=== PATIENT | male | born 1945 | race Caucasian/White ===

== ENCOUNTER 2019-07-05 15:00 | Outpatient (CLI) | payer MEDICARE, SELFPAY ==
--- NOTE | ~2019-07-05 | XR_ITS ---
EXAMINATION: XR chest 2V EXAM DATE: 07/05/2019 15:17 INDICATION: Polyarthralgia. TECHNIQUE: Frontal and lateral projections of the chest obtained and reviewed. Comparison is made to prior examination from 02/24/2019. FINDINGS: The lungs are clear. There are no pleural effusions. The cardiomediastinal silhouette is within normal limits. There is no pneumothorax suspected. The bones and soft tissues are unremarkab le. IMPRESSION: No acute cardiopulmonary findings. Reviewed, dictated and finalized at location B.
== END 2019-07-05 15:01 | disposition home or self-care (01) ==
LOC: ANHIMG 15:04
PROVIDERS: PCP Family Medicine; Visit Provider Physician Assistant
DX: M19.90 Unspecified osteoarthritis, unspecified site (principal)
CPT/HCPCS: 71046

== ENCOUNTER 2019-07-13 15:12 | Outpatient (CLI) | payer MEDICARE, SELFPAY ==
--- NOTE | ~2019-07-13 | XR_ITS ---
EXAMINATION: XR chest 2V DATE: 07/13/2019 15:32 INDICATION: Fever, unspecified cough TECHNIQUE: PA and lateral views of the chest are obtained. COMPARISON: 07/05/2019 FINDINGS: The lungs are free of acute opacities. There is no pleural effusion or pneumothorax. The ca rdiomediastinal silhouette is normal. The visualized bones and soft tissues are unremarkable. IMPRESSION: 1. No acute cardiopulmonary abnormality. Reviewed, dictated and finalized at location A.
== END 2019-07-13 15:13 | disposition home or self-care (01) ==
PROVIDERS: PCP Family Medicine; Visit Provider Physician Assistant
DX: R50.9 Fever, unspecified (principal)
CPT/HCPCS: 71046

== ENCOUNTER 2019-08-14 16:47 | Emergency (ER) | payer MEDICARE, SELFPAY ==
--- NOTE | ~2019-08-14 | XR_ITS ---
EXAMINATION: XR chest 1V portable INDICATION: History of hypertension TECHNIQUE: Portable AP chest at 1742 hours COMPARISON: 07/13/2019 FINDINGS: The lungs are free of acute opacities. There is no pleural effusion or pneumothorax. The ca rdiomediastinal silhouette is normal. The visualized bones and soft tissues are unremarkable. IMPRESSION: 1. No acute cardiopulmonary abnormality. Reviewed, dictated and finalized at location A.
[2019-08-14 16:52] VITALS: BP 146/78; PULSE 83; RESP 18; TEMP 36.5; O2SAT 96
[2019-08-14 16:57] VITALS: BP 150/76; PULSE 80; RESP 18; TEMP 37.1; O2SAT 96
--- NOTE | 2019-08-14 16:57 | ED.GENADULT ---
HPI - General Adult General Chief complaint: Extremity Injury, Upper Stated complaint: left hand pain, swelling, discoloration x4 days Time Seen by Provider: 08/14/19 16:53 History of Present Illness HPI narrative: Patient is a 73 y/o male complaining of left 3rd-5th finger pain starting about 4 days ago. He states that initially the pain was burning and itching. Now his pain is more like aching and he rates it as 7/10. He states that hanging his fingers down improves his pain. He also noticed dark discoloration of his finger. He has history of Atrial fib, but he is currently not on anticoagulation. He has a slight cough and congestion which he attributed to allergies. Related Data Home Medications Medication Instructions Recorded Confirmed Tumeric 500 mg PO DAILY 02/24/19 02/24/19 amlodipine 5 mg PO DAILY 02/24/19 02/24/19 cyanocobalamin (vitamin B-12) 1,000 mcg PO DAILY 02/24/19 02/24/19 dutasteride 5 mg PO DAILY 02/24/19 02/24/19 folic acid 400 mg PO DAILY 02/24/19 02/24/19 sotalol 80 mg PO BID 02/24/19 02/24/19 prednisone 10 mg tablet 10 mg PO DAILY 06/19/19 prednisone PO 08/14/19 Allergies Allergy/AdvReac Type Severity Reaction Status Date / Time iodine Allergy Unknown Anaphylaxis Verified 06/19/19 13:45 shrimp Allergy Unknown Itching Verified 06/19/19 13:45 Review of Systems Constitutional: Constitutional: Denies chills, Denies fever(s), Denies headache(s) and Denies weakness Eyes: Eyes: Denies blurry vision ENT: Denies headache(s) and Denies neck pain Cardiovascular: Cardiovascular: Denies chest pain and Denies dyspnea Respiratory: Respiratory: Reports cough and Denies dyspnea Gastrointestinal: Gastrointestinal: Denies abdominal pain, Denies diarrhea, Denies nausea and Denies vomiting Genitourinary: Genitourinary: Denies hematuria and Denies dysuria Musculoskeletal: Musculoskeletal: Denies back pain and Denies neck pain Comments: left finger pain Neurologic: Denies headache(s) and Denies weakness PMFSH Past Medical History Medical History A-fib CVA (cerebral vascular accident) Enlarged prostate Fever History of CVA (cerebrovascular accident) HTN (hypertension) MDS (myelodysplastic syndrome) SOB (shortness of breath) Surgical History Surgical History History of cardiac radiofrequency ablation Family History Family History Father Family history of coronary artery disease Family history of cardiovascular disease Mother Hypertension A-fib Sibling Diabetes 1.5, managed as type 2 Kidney failure Sibling Hypertension Other Family history of arthritis Social History Social History Social History: The patient lives with his in [place]. He is a patient of Dr. Pa Nelson. He designates his as his surrogate decision maker and he wishes to be a full code. He drinks a glass of wine each evening. 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 Smoking packs per day: 2 Smoking cigarettes per day: 40.0 Years smoked: 40 Smoking pack-years: 80.00 Smoking status: Former smoker Tobacco type: cigarettes Second hand tobacco smoke exposure: Yes Smoking end date: 02/24/99 Alcohol intake: current Drinks per week: 7 Substance use: never Substance use type: does not use Gender identity (if verbalized by the patient): Male Spiritual care concerns: No Agree to blood products: Yes Exam Const: General: no acute distress and well developed Orientation/consciousness: oriented to person, oriented to place, oriented to time and patient oriented x3 HENMT: Head: normocephalic Ears: external ears normal General nose exam: Normal external nose present Eyes: General: appearance normal, both eyes and all related structures Conjunctivae: conjunct
--- NOTE | 2019-08-14 17:05 | ECG_ITS ---
Measurements Intervals [place] Rate: 74 P: 72 IN: 151 QRS: 68 QRSD: 102 T: 45 QT: 395 QTc: 438 Interpretive Statements SINUS RHYTHM POSSIBLE LEFT ATRIAL ENLARGEMENT INCOMPLETE RIGHT BUNDLE BRANCH BLOCK BORDERLINE ECG Electronically Signed On 08-14-2019 18:12:06 CDT by Gallo Steiner D.O.
[2019-08-14 17:19] LABS: Hematocrit 59.5 % (42.0-52.0); Hemoglobin 17.1 g/dL (14.0-18.0); Mean Corpuscular HGB Conc 28.7 g/dl (32-36); Mean Corpuscular Hemoglobin 20.3 pg (26-34); Mean Corpuscular Volume 70.5 fl (80-100); Platelet Count Result 170 k/mm3 (150-375); Red Blood Count 8.44 M/mm3 (4.6-6.20); White Blood Count 31.6 K/mm3 (4.5-10.0)
[2019-08-14 17:27] LABS: INR 1.3; Partial Thromboplastin Time 38.3 SECONDS (22.3-36.8); Prothrombin Time 15.4 Seconds (11.1-14.7)
[2019-08-14 17:30] LABS: Total Cells Counted 100
[2019-08-14 17:31] LABS: Band Neutrophils Percent 1 % (0-6); Lymphocytes Absolute Manual 1.58 K/mm3 (1.1-4.5); Lymphocytes Percent Manual 5 % (18-44); Metamyelocytes Percent 4 %; Monocytes Absolute Manual 0.63 K/mm3 (0.1-0.90); Monocytes Percent Manual 2 % (3-9); Neutrophils Absolute Manual 28.12 K/mm3 (1.3-6.7); Neutrophils Percent Manual 88 % (46-73)
[2019-08-14 17:32] LABS: Platelet Estimate Adequate (Adequate)
[2019-08-14 17:44] LABS: Blood Urea Nitrogen 23 mg/dL (9-20); Calcium 8.8 mg/dL (8.4-10.2); Carbon Dioxide 20 mmol/L (22-30); Chloride 97 mmol/L (98-107); Estimated CRCL calculation 92 ml/min; Estimated Glomerular Filt Rate > 60; Glucose 614 mg/dL (75-110); Potassium 4.8 mmol/L (3.4-5.0); Sodium 131 mmol/L (137-145)
[2019-08-14] MEDS: SODIUM CHLORIDE 0.9% IV 1,000 ML 999 ML IV CONT (18:02)
[2019-08-14] MEDS: INSULIN HUMAN REGULAR (*BKC) 100 UNITS/ML 8 UNITS IV PUSH (18:17)
[2019-08-14 18:44] VITALS: BP 152/72; PULSE 80; RESP 16; O2SAT 98
[2019-08-14] MEDS: MORPHINE SULFATE 4 MG/ML INJ IV PUSH (18:48)
[2019-08-14 18:55] LABS: Glucose Point of Care 385 (65-105)
--- NOTE | 2019-08-14 19:18 | PC.NURSE ---
Called [facility] at 1902. ETA 0 Called [facility] at 1909. [facility] declined. Called [facility] at 1914. [facility] declined.
--- NOTE | 2019-08-14 19:39 | PC.NURSE ---
Called [facility] at 1920. Called returned and transfer declined at 1938
--- NOTE | 2019-08-14 19:43 | PC.NURSE ---
Called [facility]. Would have 45 - 1hour ETA. Which is close to [facility] ETA. Will call [facility] back if needed.
[2019-08-14 19:53] VITALS: BP 142/66; PULSE 72; RESP 18; O2SAT 100
--- NOTE | 2019-08-14 20:04 | PC.NURSE ---
Called [facility] for ETA update. ETA 2030
[2019-08-14 20:59] VITALS: BP 137/74; PULSE 16; RESP 16; TEMP 37; O2SAT 100
[2019-08-15 14:10] LABS: SARS-CoV-2 RNA PCR Negative
== END 2019-08-14 21:00 | disposition short-term general hospital (02) ==
PROVIDERS: Emergency Provider Emergency Medicine; PCP Family Medicine
DX: I99.8 Other disorder of circulatory system (principal); R73.9 Hyperglycemia, unspecified; R05 Cough; Z20.828 Contact with and (suspected) exposure to other viral communicable diseases; Z86.73 Personal history of transient ischemic attack (TIA), and cerebral infarction without residual deficits; I48.91 Unspecified atrial fibrillation; N40.0 Benign prostatic hyperplasia without lower urinary tract symptoms; I10 Essential (primary) hypertension; D46.9 Myelodysplastic syndrome, unspecified; Z87.891 Personal history of nicotine dependence; I45.10 Unspecified right bundle-branch block; R94.31 Abnormal electrocardiogram [ECG] [EKG]
CPT/HCPCS: 36415; 71045; 80048; 82948; 85025; 85055; 85610; 85730; 87635; 93005; 96361; 96374; 96375; 99285; C9803; J1815; J2270; J7030; U0003

== ENCOUNTER 2019-09-19 09:03 | Outpatient (CLI) | payer MEDICARE, SELFPAY ==
[2019-09-19 09:42] LABS: Basophils Absolute Auto 0.3 K/mm3 (0.0-0.1); Basophils Percent Auto 1.2 % (0.2-1.2); Eosinophils Absolute Auto 0.2 K/mm3 (0-0.3); Eosinophils Percent Auto 0.8 % (0-4.4); Hematocrit 53.8 % (42.0-52.0); Hemoglobin 15.5 g/dL (14.0-18.0); Immature Granulocyte Absolute 2.31 K/mm3 (0.00-0.031); Immature Granulocyte Percent A 8.5 % (0-0.5); Immature Platelet Fraction Pct 16.2 % (0.9-11.2); Lymphocytes Absolute Auto 1.97 K/mm3 (0.9-3.2); Lymphocytes Percent Auto 7.2 % (18.3-44.2); Mean Corpuscular HGB Conc 28.8 g/dl (32-36); Mean Corpuscular Hemoglobin 20.4 pg (26-34); Mean Corpuscular Volume 70.8 fl (80-100); Monocytes Absolute Auto 1.4 K/mm3 (0.1-0.6); Monocytes Percent Auto 5.2 % (2.6-8.5); Neutrophils Percent Auto 77.1 % (45.5-73.1); Nucleated Red Blood Cells Perc 0.1 % (0.0-0.2); Platelet Count Result 190 k/mm3 (150-375); Red Cell Distribution Width 22.9 % (11.5-14.5); White Blood Count 27.3 K/mm3 (4.5-10.0)
[2019-09-19 09:43] LABS: Alanine Aminotransferase 11 U/L (4-50); Albumin Level 4.3 g/dL (3.5-5.1); Alkaline Phosphatase 102 U/L (38-126); Aspartate Amino Transferase 31 U/L (17-59); Bilirubin,Total 0.6 mg/dL (0.2-1.3)
[2019-09-19 09:50] LABS: Anisocytosis 1+ (NORMAL); Platelet Estimate Adequate (Adequate)
[2019-09-19 09:51] LABS: Polychromasia 1+ (NORMAL)
[2019-09-19 10:13] LABS: Prostate Specific Antigen 1.1 ng/mL (< OR = 4.0)
[2019-09-22 12:32] LABS: Testosterone Total 465 ng/dL (250-1100)
== END 2019-09-19 09:04 | disposition home or self-care (01) ==
LOC: ANHLAB 09:07
PROVIDERS: PCP Family Medicine; Visit Provider Urology
DX: E29.1 Testicular hypofunction (principal); R97.20 Elevated prostate specific antigen [PSA]
CPT/HCPCS: 36415; 80076; 84153; 84403; 85025; 85055

== ENCOUNTER 2019-12-15 06:53 | Outpatient (NON) | payer MEDICARE, SELFPAY ==
[2019-12-15 19:19] LABS: SARS-CoV-2 RNA PCR Negative
== END 2019-12-15 06:54 ==
PROVIDERS: Physician Assistant; Visit Provider Family Medicine
DX: Z20.828 Contact with and (suspected) exposure to other viral communicable diseases (principal); R50.9 Fever, unspecified
CPT/HCPCS: 87635; C9803; U0003

== ENCOUNTER 2020-05-28 16:37 | Outpatient (CLI) | payer MEDICARE, SELFPAY ==
--- NOTE | ~2020-05-28 | MR_ITS ---
EXAMINATION: MR brain/brain stem wo con EXAM DATE: 05/28/2020 17:31 INDICATION: Headache. Light sensitivity. Additional history, patient had paresthesias as well. TECHNIQUE: Magnetic resonance imaging (MRI) of the brain/brain stem obtained without contrast. Sagitt al T1, axial diffusion, gradient echo (T2*), T1, T2, FLAIR sequences obtained. There is no prior st udy for comparison. FINDINGS: On the diffusion-weighted sequence, small scattered regions of increased signal intensity a long the subarachnoid spaces adjacent to the falx bilaterally and along left parietal lobe without an y corresponding signal abnormality on other sequences. Differential diagnosis includes artifact, smal l scattered foci subarachnoid hemorrhage (although no susceptibility on gradient-echo, and no reporte d history of trauma), leptomeningeal process such as carcinomatosis or infection. Clinical correlatio n and post contrast MR should be obtained to determine if there is any abnormal enhancement. Probable small incidental arachnoid cyst overlying left parietal lobe. There are no areas of acute in farction. There is no acute hemorrhage seen on the T2*, a hemosiderin sensitive sequence. No intrap arenchymal brain mass. There is punctate old right earl radiata infarction. The ventricles are norm al in size. There are no extra-axial collections. Flow voids are seen in the cerebral arteries on t he T2-weighted sequences consistent with their expected patency. The orbits are unremarkable. Soft tissue is unremarkable. Mild right maxillary sinus mucoperiosteal thickening IMPRESSION: Abnormal foci of subarachnoid diffusion weighted signal. Differential diagnosis includes artifact, subarachnoid hemorrhage, leptomeningeal carcinomatosis or infection. A contrast enhanced MR I is recommended. I discussed these findings, recommendation with Fransisco MccallMD at 05/29/2020 10:31 MONITORING ENGINEER. Reviewed, dictated and finalized at location B. TORING ENGINEER IMPRESSION: Abnormal foci of subarachnoid diffusion weighted signal. Differenti al diagnosis includes artifact, subarachnoid hemorrhage, leptomeningeal carcino matosis or infection. A contrast enhanced MRI is recommended. I discussed these findings, recommendation with Fransisco MccallMD at 05/29/2020 10:31 MONITORING ENGINEER.
== END 2020-05-28 16:38 | disposition home or self-care (01) ==
LOC: ANHIMG 16:40
PROVIDERS: Family Provider Family Medicine; PCP Family Medicine; Referring Provider Physician Assistant; Visit Provider Internal Medicine Rheumatology
DX: R51.9 Headache, unspecified (principal); R93.0 Abnormal findings on diagnostic imaging of skull and head, not elsewhere classified
CPT/HCPCS: 70551

== ENCOUNTER 2020-05-30 15:48 | Emergency (ER) | payer MEDICARE, SELFPAY ==
--- NOTE | ~2020-05-30 | CT_ITS ---
EXAMINATION: CT brain wo con DATE: 05/30/2020 16:18 INDICATION: Possible CVA TECHNIQUE: Computed tomography (CT) of the head was performed without intravenous contrast. The dose- length product was 681.00 mGy-cm. The mA was adjusted according to patient size. Iterative reconstruc tion technique was employed. COMPARISON: MRI dated 05/28/[address] dated 02/24/2019 FINDINGS: No acute intracranial hemorrhage, infarction, mass or mass effect. No ventriculomegaly or m idline shift. Basilar cisterns are patent. There are scattered mild periventricular and subcortical w georgi matter changes, most likely related to small vessel ischemic disease (microangiopathy). Mild muc osal thickening of the right maxillary sinus. Mastoids are pneumatized. IMPRESSION: 1. No acute intracranial abnormality. 2: Further evaluation with contrast-enhanced MRI recommended on recent MRI brain dated 05/28/2020 for abnormal subarachnoid diffusion-weighted signal. No corresponding abnormality identified on CT exami nation. As per stroke protocol, I called these results to emergency room, discussed with Susanne Sanchez at 05/30/2020 16:24 INCLUSION PARAEDUCATOR. Reviewed, dictated and finalized at location A. USION PARAEDUCATOR IMPRESSION: 1. No acute intracranial abnormality. 2: Further evaluation with contrast-enhanced MRI recommended on recent MRI brai n dated 05/28/2020 for abnormal subarachnoid diffusion-weighted signal. No francis esponding abnormality identified on CT examination. As per stroke protocol, I called these results to emergency room, discussed wit h Dr. Madeleine Perla MD at 05/30/2020 16:24 INCLUSION PARAEDUCATOR.
[2020-05-30 16:01] VITALS: BP 126/74; PULSE 69; RESP 16; TEMP 36.2; O2SAT 97
[2020-05-30 16:19] LABS: Basophils Absolute Auto 0.3 K/mm3 (0.0-0.1); Basophils Percent Auto 1.2 % (0.2-1.2); Eosinophils Absolute Auto 0.4 K/mm3 (0-0.3); Eosinophils Percent Auto 1.4 % (0-4.4); Hemoglobin 14.7 g/dL (14.0-18.0); Immature Granulocyte Absolute 0.73 K/mm3 (0.00-0.031); Immature Granulocyte Percent A 2.7 % (0-0.5); Immature Platelet Fraction Pct 19.6 % (0.9-11.2); Lymphocytes Percent Auto 9.9 % (18.3-44.2); Mean Corpuscular HGB Conc 30.6 g/dl (32-36); Mean Corpuscular Hemoglobin 22.5 pg (26-34); Mean Corpuscular Volume 73.4 fl (80-100); Monocytes Absolute Auto 2.7 K/mm3 (0.1-0.6); Monocytes Percent Auto 9.9 % (2.6-8.5); Neutrophils Absolute Auto 20.6 K/mm3 (1.3-6.7); Neutrophils Percent Auto 74.9 % (45.5-73.1); Platelet Count Result 346 k/mm3 (150-375); Red Blood Count 6.54 M/mm3 (4.6-6.20); Red Cell Distribution Width 20.7 % (11.5-14.5); White Blood Count 27.4 K/mm3 (4.5-10.0)
[2020-05-30 16:34] LABS: INR 1.4; Prothrombin Time 17.8 Seconds (11.1-14.7)
[2020-05-30 16:36] LABS: Anion Gap 10 mmol/L (8-16); Blood Urea Nitrogen 26 mg/dL (9-20); Calcium 8.4 mg/dL (8.4-10.2); Carbon Dioxide 20 mmol/L (22-30); Chloride 103 mmol/L (98-107); Estimated CRCL calculation 81 ml/min; Estimated Glomerular Filt Rate > 60; Glucose 116 mg/dL (75-110); Partial Thromboplastin Time 47.9 SECONDS (22.3-36.8); Potassium 4.3 mmol/L (3.4-5.0); Sodium 133 mmol/L (137-145)
[2020-05-30 17:00] VITALS: BP 129/71; PULSE 64; RESP 16; O2SAT 98
--- NOTE | 2020-05-30 17:30 | ED.GENADULT ---
HPI - General Adult General Chief complaint: Recheck/Abnormal Lab/Rx Stated complaint: headahce/ abnormal mri Time Seen by Provider: 05/30/20 16:27 Source: patient and family Mode of arrival: ambulatory Limitations: no limitations History of Present Illness HPI narrative: Patient is 74 years old white male referred to the emergency room by his family physician because of headache and abnormality of the head MRI. Patient reports frontal headache radiating to the bitemporal area started 3 weeks ago, associated with numbness and weakness of the right hand that lasted for 1 day, the headache was 8 out of 10 at that time patient presented with today is 4 out of examination. Reviewed patient was seen by his steamfitter apprentice who ordered MRI of the brain without contrast 2 days ago, , showed abnormal foci of subarachnoid diffusion weighted signal. Differential diagnosis includes artifact, subarachnoid hemorrhage, leptomeningeal carcinomatosis or infection. The steamfitter apprentice referred the case to family physician who referred the patient to our emergency room for further evaluation Patient denies any nausea, vomiting, chest pain, back pain, shortness of breath, Covid infection or exposure to anybody known having Covid infection, patient reported that his headache today is 4 out of 10, usually gets worse with bending over or doing activity, get better with ice bag. Patient reported intermittent nausea usually fairly morning. Recently been complaining of poor sleep and poor p.o. intake. Patient denies any recent trauma. Patient had history of MDS, rheumatoid arthritis, hypertension, diabetes, atrial fibrillation on Eliquis. Patient declined to take any pain medication in the emergency room because he does not want IV access. He denies any focal neuro deficit. Related Data Home Medications Medication Instructions Recorded Confirmed cyanocobalamin (vitamin B-12) 1,000 mcg PO DAILY 02/24/19 02/24/19 allopurinol 05/30/20 amlodipine 05/30/20 apixaban [Eliquis] mg 05/30/20 blood sugar diagnostic [Contour 05/30/20 05/30/20 Next Test Strips] uaot-ucu-itj-ddi-tmzk-llia-pec 3,000 tablet PO 05/30/20 [Fiber 6] dutasteride mg PO 05/30/20 folic acid 05/30/20 linagliptin [Tradjenta] mg 05/30/20 methotrexate sodium 05/30/20 omeprazole 20 mg PO DAILY 05/30/20 ruxolitinib [Jakafi] mg 05/30/20 sotalol 05/30/20 vitamin B complex [B tablet 05/30/20 Complex-Vitamin B12] Allergies Allergy/AdvReac Type Severity Reaction Status Date / Time iodine Allergy Unknown Anaphylaxis Verified 05/30/20 16:54 shrimp Allergy Unknown Itching Verified 05/30/20 16:54 Review of Systems Review of Systems: Narrative: CONSTITUTIONAL: Denies fever, chills, or sweats. EYES: Denies visual changes, redness, or discharge. ENT: Denies rhinorrhea, congestion, sore throat, or otalgia. CARDIOVASCULAR: Denies chest pain, palpitations, or edema. RESPIRATORY: Denies cough or dyspnea. GASTROINTESTINAL: Denies abdominal pain, nausea, vomiting, or diarrhea. GENITOURINARY: Denies dysuria or hematuria. SKIN: Denies rash or itching. MUSCULOSKELETAL: Denies back pain, joint pain, or myalgia. NEUROLOGIC: Headache PSYCHIATRIC: Denies anxiety or depression. [facility] Past Medical History Medical History A-fib CVA (cerebral vascular accident) Enlarged prostate Fever History of CVA (cerebrovascular accident) HTN (hypertension) MDS (myelodysplastic syndrome) SOB (shortness of breath) Steroid-induced diabetes mellitus Surgical History Surgical History History of cardiac radiofrequency ablation History of surgical amputation of finger of left hand Family History Family History Father Family history of coronary artery disease Family history of cardiovascular disease Mother Hypertension A-fib Sibling Diabetes 1
[2020-05-30 18:17] LABS: Erythrocyte Sedimentation Rate 19 mm/hr (0-20)
[2020-05-30 18:31] LABS: CRP 0.7 mg/dL (<1.0)
[2020-05-30 18:50] VITALS: BP 127/74; PULSE 93; RESP 16; O2SAT 99
== END 2020-05-30 18:50 | disposition home or self-care (01) ==
PROVIDERS: Emergency Medicine Emergency Medical Services; Emergency Provider Emergency Medicine; PCP Family Medicine
DX: D46.9 Myelodysplastic syndrome, unspecified (principal); R51.9 Headache, unspecified; Z87.891 Personal history of nicotine dependence; I48.91 Unspecified atrial fibrillation
CPT/HCPCS: 36415; 70450; 80048; 85025; 85055; 85610; 85652; 85730; 86140; 99284

== ENCOUNTER 2020-05-31 10:01 | Outpatient (CLI) | payer MEDICARE, SELFPAY ==
--- NOTE | ~2020-05-31 | MR_ITS ---
EXAMINATION: MR brain/brain stem w con EXAM DATE: 05/31/2020 11:10 INDICATION: Headaches, abnormal brain MRI without contrast. TECHNIQUE: Magnetic resonance imaging (MRI) of the brain/brain stem obtained without contrast. Sagit carlo T1, axial diffusion, gradient echo (T2*), T1, T2, FLAIR sequences obtained. Patient was then inj ected with 15 cc intravenous Multihance contrast. Axial and coronal postcontrast T1 weighted sequence s obtained. Comparison is made to prior examination from 05/28/2020, 02/25/2019, and a head CT from 2020. FINDINGS: Again there are, small scattered regions of increased DWI signal intensity along the subara chnoid spaces adjacent to the falx bilaterally and along left parietal lobe without any corresponding signal abnormality on other sequences. These are new compared to a prior brain MRI examination 2018. Differential diagnosis includes small scattered foci subarachnoid hemorrhage (could be subacute posttraumatic etiology given this is not visualized on yesterday's head CT), leptomeningeal process such as carcinomatosis or infection (unlikely given no abnormal enhancement on postcontrast sequences ). Probable small incidental arachnoid cyst overlying left parietal lobe. There are no areas of acute in farction. There is no acute hemorrhage seen on the T2*, a hemosiderin sensitive sequence. No intrap arenchymal brain mass. There is punctate old right earl radiata infarction. The ventricles are norm al in size. There are no extra-axial collections. Flow voids are seen in the cerebral arteries on t he T2-weighted sequences consistent with their expected patency. The orbits are unremarkable. Soft tissue is unremarkable. Mild right maxillary sinus mucoperiosteal thickening There are no areas of ab normal enhancement on the post contrast images. IMPRESSION: Unchanged abnormal bilateral subarachnoid foci of subarachnoid diffusion weighted signal, most likely subacute posttraumatic subarachnoid hemorrhage. No abnormal enhancement or acute finding s. Reviewed, dictated and finalized at location B. MATIC MOLD SANDER IMPRESSION: Unchanged abnormal bilateral subarachnoid foci of subarachnoid diff usion weighted signal, most likely subacute posttraumatic subarachnoid hemorrha ge. No abnormal enhancement or acute findings.
== END 2020-05-31 10:02 | disposition home or self-care (01) ==
LOC: ANHIMG 10:03
PROVIDERS: PCP Family Medicine; Visit Provider Family Medicine
DX: R51.9 Headache, unspecified (principal); G89.29 Other chronic pain; R93.0 Abnormal findings on diagnostic imaging of skull and head, not elsewhere classified
CPT/HCPCS: 70552; A9577

== ENCOUNTER 2020-06-18 15:07 | Inpatient (IN) | payer MEDICARE, SELFPAY ==
[2020-06-18] VITALS (37 sets, daily range): BP systolic 139–177; BP diastolic 68–118; PULSE 75–102; RESP 10–21; TEMP 37.2–38.4; O2SAT 92–98; BMI 22.4
--- NOTE | ~2020-06-18 | CT_ITS ---
EXAMINATION: CTA brain carotid DATE: 06/18/2020 17:03 INDICATION: Cerebrovascular accident. TECHNIQUE: Computed tomographic angiography (CTA) of the head was performed with 100 mL Omnipaque-350 intravenous contrast. CTA of the neck was performed with intravenous contrast. Automated exposure co ntrol and iterative reconstruction technique were employed. The dose-length product was 1301.40 mGy-c m. Maximum intensity projection and volume rendered 3D-reconstructions were created by the [id number] on a separate workstation. COMPARISON: Head CT 06/18/2020, brain MRI 05/31/2020, CTA 02/24/2019 FINDINGS: HEAD CTA: There is no intracranial hemorrhage, acute infarction, or abnormal intracranial mass lesion . The ventricles are normal in size. There is a 3.2 x 1.0 cm arachnoid cyst overlying left frontopari etal region. There is mild mucosal thickening in the paranasal sinuses. There are likely changes of o cular lens replacement surgeries. The mastoid air cells are normal. There is an old healed fracture o f left frontal bone involving the anterior wall of the left frontal sinus. The vertebral arteries are codominant. There is no significant stenosis of basilar artery or the posterior cerebral arteries. T here is no significant stenosis of the intracranial internal carotid arteries or anterior or middle c erebral arteries. Anterior communicating artery and the posterior communicating arteries are normal. There is no aneurysm. NECK CTA: There is mild emphysema. There are no pathologically enlarged lymph nodes. There is no sign ificant stenosis of the vertebral arteries. There is mild plaque in the proximal internal carotid art eries. There is 0% stenosis of the proximal right internal carotid artery relative to normal distal a rtery lumen diameter (NASCET criteria). There is 0% stenosis of the proximal left internal carotid ar megan relative to normal distal artery lumen diameter. There is moderate cervical spondylosis. IMPRESSION: 1. No aneurysm or significant intracranial arterial stenosis. 2. 0% stenosis of the proximal internal carotid arteries relative to normal distal artery lumen diame ters (NASCET criteria). Reviewed, dictated and finalized at location A. TRICIAN ASSISTANT IMPRESSION: 1. No aneurysm or significant intracranial arterial stenosis. 2. 0% stenosis of the proximal internal carotid arteries relative to normal dis carlo artery lumen diameters (NASCET criteria).
--- NOTE | ~2020-06-18 | XR_ITS ---
EXAMINATION: XR abdomen NG/feed tube insert EXAM DATE: 06/19/2020 11:21 INDICATION: Nasogastric tube insertion. TECHNIQUE: Frontal projection(s) of the abdomen for interpretation. There is no prior study for sammy hathaway. FINDINGS: Feeding tube tip overlies gastric cardia, the side port is at the gastroesophageal junctio n. Could be safely advanced 5 cm. Nonobstructive upper abdominal bowel gas pattern. Mild bony degener ative changes. No basilar confluent consolidation. IMPRESSION: Feeding tube tip in stomach, but could be safely advanced 5 cm. Reviewed, dictated and finalized at location B. K SAW OPERATOR
--- NOTE | ~2020-06-18 | MR_ITS ---
EXAMINATION: MR brain/brain stem wo/w con EXAM DATE: 06/19/2020 09:01 INDICATION: Stroke. Altered mental status. TECHNIQUE: Magnetic resonance imaging (MRI) of the brain/brain stem obtained without contrast. Sagit carlo T1, axial diffusion, gradient echo (T2*), T1, T2, FLAIR sequences obtained. Patient was then inj ected with 15 cc intravenous Multihance contrast. Axial and coronal postcontrast T1 weighted sequence s obtained. Comparison is made to prior examination from 05/31/2020. FINDINGS: Again there are, small scattered regions of increased DWI signal intensity along the subar achnoid spaces adjacent to the falx bilaterally and along left parietal lobe without any correspondin g signal abnormality on other sequences. These appear unchanged compared to earlier this month, diffe rential diagnosis unchanged including more likely subacute subarachnoid hemorrhage than leptomeningea l process such as carcinomatosis or infection (given no abnormal enhancement on postcontrast sequence s). Probable small incidental arachnoid cyst overlying left parietal lobe. There are no areas of acute in farction. There is no acute hemorrhage seen on the T2*, a hemosiderin sensitive sequence. No intrap arenchymal brain mass. There is punctate old right earl radiata infarction. The ventricles are norm al in size. There are no extra-axial collections. Flow voids are seen in the cerebral arteries on t he T2-weighted sequences consistent with their expected patency. The orbits are unremarkable. Soft tissue is unremarkable. Minimal mucoperiosteal thickening. There are no areas of abnormal enhancement on the post contrast images. IMPRESSION: Unchanged abnormal bilateral subarachnoid foci of subarachnoid diffusion weighted signal, most likely subacute posttraumatic subarachnoid hemorrhage. No abnormal enhancement or acute finding s. Reviewed, dictated and finalized at location B. ERCIAL KITCHEN SERVICE TECHNICIAN IMPRESSION: Unchanged abnormal bilateral subarachnoid foci of subarachnoid diff usion weighted signal, most likely subacute posttraumatic subarachnoid hemorrha ge. No abnormal enhancement or acute findings.
--- NOTE | ~2020-06-18 | XR_ITS ---
EXAMINATION: XR abdomen NG/feed tube insert DATE: 06/19/2020 10:50 INDICATION: Nasogastric tube placement TECHNIQUE: Frontal view of the chest and abdomen was obtained for evaluation of feeding tube placemen t. COMPARISON: Chest radiograph dated 06/18/2020 FINDINGS: Nasogastric tube tip extends through the right mainstem bronchus with tip projecting over the right l ower lung zone. No airspace opacities, pulmonary edema, pleural effusion or pneumothorax. No dilated loops of gas-filled bowel in the abdomen. IMPRESSION: 1. Nasogastric tube extends to the right mainstem bronchus into the right lower lung. Reviewed, dictated and finalized at location A. SASH AND FRAME CARPENTER
--- NOTE | ~2020-06-18 | XR_ITS ---
XR chest 1V portable DATE: 06/18/2020 15:58 INDICATION: Cerebrovascular accident, headache for one month. Hypertension. Atrial fibrillation. TECHNIQUE: Portable AP chest on June 18, 2020 at 1553 hours COMPARISON: 08/14/2019 portable AP chest at 1742 hours FINDINGS: Heart size appears within normal limits. Is aortic calcification and mild unfolding. There is mild infiltrate or atelectasis in the lower lung zones. No pleural effusion or pneumothorax is evident. There is pulmonary vascular congestion and redistribution. Diffuse osteopenia. IMPRESSION: Mild infiltrate or atelectasis in the lower lung zones Pulmonary vascular congestion Reviewed, dictated and finalized at location A. ERVATION ENGINEER
--- NOTE | ~2020-06-18 | CT_ITS ---
EXAMINATION: CT brain wo con DATE: 06/18/2020 15:38 INDICATION: Stroke TECHNIQUE: Computed tomography (CT) of the head was performed without intravenous contrast. Sagittal and coronal reconstructions were performed. The mA was adjusted according to patient size. Iterative reconstruction technique was employed. The dose-length product was 681.00 mGy-cm. COMPARISON: head CT dated 05/30/2020 FINDINGS: No acute intracranial hemorrhage, acute infarction or abnormal extra axial fluid collection. There is mild scattered white matter hypoattenuation consistent with chronic small vessel ischemic disease. Ventricles are normal and symmetric. No mass/mass effect. Old healed fracture of the anterior wall of the left frontal sinus. No acute fracture. The orbits, paranasal sinuses and mastoid air cells are n ormal. Intracranial calcified cerebral atherosclerosis is noted. IMPRESSION: 1. No acute intracranial process. 2. Mild scattered white matter hypoattenuation consistent with chronic small vessel ischemic disease. Reviewed, dictated and finalized at location A. ET FINISHING SUPERVISOR IMPRESSION: 1. No acute intracranial process. 2. Mild scattered white matter hypoattenuation consistent with chronic small ve ssel ischemic disease.
--- NOTE | ~2020-06-18 | XR_ITS ---
EXAMINATION: XR lumbar puncture diagnostic DATE: 06/19/2020 13:58 INDICATION: Meningitis. Altered mental status. TECHNIQUE: The procedure including the risks and benefits was discussed with the patient's provi ded consent. Risks discussed included spinal headache, cerebrospinal fluid leak, bleeding, and infect ion. A timeout was performed to verify the patient's name, date of , and procedure to be perfo rmed. The skin overlying the L4-L5 level was prepped and draped in usual sterile fashion. Subcutane ous 1% lidocaine was used for local anesthesia. A 22 gauge spinal needle was advanced under fluorosc opic guidance. The needle was removed and the entry site was cleaned and dressed. Prior to the beginn ing of the procedure the patient expansion episode of desaturation to 80%. The oxygen sat on her was also indicating tachycardia with heart rates increased from 160's to 200. I called a rapid response a nd manually checked the pulse which per palpation at the right wrist appears significantly slower lik milagros in the 90s. The patient was placed on ventilator oxygen by nasal cannula with increased oxygen sa turation levels to 95% with heart rate on the monitor again in the 90s. At this point the procedure w as initiated and there were no subsequent immediate complications. The patient was returned to the [facility]. FINDINGS: Real-time fluoroscopy demonstrates the needle at the L4-L5 level. Opening pressure was 18 c m water. (Normal range is variably defined as 6-20 cm water and up to 25 cm water in obese patients. Pressure >25 cm water is one of the modified Dandy criteria for idiopathic intracranial hypertension) . There was no initial reddish tinged the first droplet of CSF in the needle which rapidly cleared. S ubsequent CSF however did remain hazy with a faint yellowish tinge. 15.5 mL of fluid was collected in 4 tubes. IMPRESSION: 1. Successful fluoro-guided lumbar puncture with normal opening pressure of 18 cm water. Reviewed, dictated and finalized at location A. STAMP OPERATOR
[2020-06-18 15:49] LABS: Glucose Point of Care 94 (65-105)
[2020-06-18 15:49] LABS: Hematocrit 52.4 % (42.0-52.0); Hemoglobin 16.4 g/dL (14.0-18.0); Immature Platelet Fraction Pct 18.1 % (0.9-11.2); Mean Corpuscular HGB Conc 31.3 g/dl (32-36); Mean Corpuscular Hemoglobin 22.2 pg (26-34); Mean Corpuscular Volume 70.8 fl (80-100); Platelet Count Result 411 k/mm3 (150-375); Red Cell Distribution Width 21.8 % (11.5-14.5); White Blood Count 38.5 K/mm3 (4.5-10.0)
[2020-06-18 15:58] LABS: INR 1.5; Prothrombin Time 18.5 Seconds (11.1-14.7)
--- NOTE | 2020-06-18 15:58 | ED.NEUROSD ---
HPI - Neuro Symptoms/Deficit General Chief Complaint: Suspected CVA Stated Complaint: r/o cva Time Seen by Provider: 06/18/20 15:34 History of Present Illness HPI Narrative: Patient is a 74-year-old male who presents ER with acute onset neurologic symptoms. He was supposed to come in and get a CTA of his brain today after having suffered a subarachnoid hemorrhage previously in a month. This was found to be subacute on an MRI with contrast on 05/30/2020. Patient became confused and started having difficulty speaking and walking around. got him in the car and drove him here. She reports he did not take his Eliquis yesterday but took his Eliquis today. Related Data Home Medications Medication Instructions Recorded Confirmed cyanocobalamin (vitamin B-12) 1,000 mcg PO DAILY 02/24/19 06/17/20 allopurinol 05/30/20 06/17/20 amlodipine 05/30/20 06/17/20 apixaban [Eliquis] mg 05/30/20 06/17/20 orhy-tlq-jtk-ynb-phgb-gorp-pec 3,000 tablet PO 05/30/20 06/17/20 [Fiber 6] dutasteride mg PO 05/30/20 06/17/20 folic acid 05/30/20 06/17/20 linagliptin [Tradjenta] mg 05/30/20 06/17/20 methotrexate sodium 05/30/20 06/17/20 omeprazole 20 mg PO DAILY 05/30/20 06/17/20 ruxolitinib [Jakafi] mg 05/30/20 06/17/20 sotalol 05/30/20 06/17/20 tramadol 50 mg tablet 50 mg PO Q8H PRN tablet 06/17/20 06/17/20 Allergies Allergy/AdvReac Type Severity Reaction Status Date / Time iodine Allergy Unknown Anaphylaxis Verified 06/17/20 13:41 shrimp Allergy Unknown Itching Verified 06/17/20 13:41 Review of Systems Review of Systems: ROS unobtainable: Yes unobtainable due to mental status PMFSH Past Medical History Medical History (Updated 06/18/20 @ 18:08 by Ralph Woodard MD) A-fib CVA (cerebral vascular accident) Enlarged prostate Fever History of CVA (cerebrovascular accident) HTN (hypertension) MDS (myelodysplastic syndrome) Rheumatoid arthritis SOB (shortness of breath) Steroid-induced diabetes mellitus Surgical History Surgical History History of cardiac radiofrequency ablation History of surgical amputation of finger of left hand Family History Family History Father Family history of coronary artery disease Family history of cardiovascular disease Mother Hypertension A-fib Sibling Diabetes 1.5, managed as type 2 Kidney failure Sibling Hypertension Other Family history of arthritis Social History Social History Social History: The patient lives with his in [place]. He is a patient of Dr. Pa Nelson. He designates his as his surrogate decision maker and he wishes to be a full code. He drinks a glass of wine each evening. 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 Smoking packs per day: 2 Smoking cigarettes per day: 40.0 Years smoked: 40 Smoking pack-years: 80.00 Smoking status: Former smoker Tobacco type: cigarettes Second hand tobacco smoke exposure: Yes Smoking end date: 02/24/99 Alcohol intake: current Drinks per week: 7 Substance use: never Substance use type: does not use Gender identity (if verbalized by the patient): Male Spiritual care concerns: No Agree to blood products: Yes Exam Narrative: Exam Narrative: GENERAL: Well-appearing, well-nourished, and in no acute distress. HEAD: Normocephalic, atraumatic. EYES: PERRL and EOMI. ENT: Mucous membranes moist. CHEST: Clear to auscultation. No respiratory distress. HEART: Regular rate and rhythm. Normal peripheral pulses. ABDOMEN: Soft, nontender, nondistended. EXTREMITIES: Normal range of motion. No edema. SKIN: Warm, dry, no rash. NEURO: Awake and alert. Able to intermittently follow commands. Cranial nerves II through XII intact. Patient has some clear speech but he is unable to communicate what he wants or what he needs.
[2020-06-18 15:59] LABS: Partial Thromboplastin Time 51.9 SECONDS (22.3-36.8)
[2020-06-18 16:07] LABS: Anion Gap 10 mmol/L (8-16); Blood Urea Nitrogen 20 mg/dL (9-20); Calcium 9.4 mg/dL (8.4-10.2); Carbon Dioxide 24 mmol/L (22-30); Chloride 98 mmol/L (98-107); Estimated CRCL calculation 104 ml/min; Estimated Glomerular Filt Rate > 60; Glucose 95 mg/dL (75-110); Potassium 4.2 mmol/L (3.4-5.0); Sodium 132 mmol/L (137-145)
[2020-06-18 16:08] LABS: Band Neutrophils Percent 1 % (0-6); Lymphocytes Absolute Manual 3.46 K/mm3 (1.1-4.5); Monocytes Absolute Manual 1.92 K/mm3 (0.1-0.90); Monocytes Percent Manual 5 % (3-9); Neutrophils Absolute Manual 33.11 K/mm3 (1.3-6.7); Neutrophils Percent Manual 85 % (46-73); Total Cells Counted 100
[2020-06-18 16:09] LABS: Anisocytosis 3+ (NORMAL); Platelet Estimate Increased (Adequate)
[2020-06-18 16:11] LABS: Hypersegmented Neutrophils Present
[2020-06-18 16:19] LABS: Troponin I < 0.012 ng/mL (0.000-0.034)
[2020-06-18 17:20] LABS: Add Urine Microscopic? YES; Appearance Urine Clear (Clear); Bilirubin Urine Negative (Negative); Blood Urine 1+ (Negative); Color Urine Yellow (Yellow); Glucose Urine UA Negative (Negative); Ketones Urine Trace mg/dL (Negative); Leukocyte Esterase Ur Negative LEU/UL (Negative); Mucus Urine Rare /lpf; Nitrate Urine Negative (Negative); Protein Urine 2+ mg/dL (Negative); RBC Urine 0-2 /hpf (0-2); Specific Grav Ur 1.027 (1.001-1.035); Urobilinogen Urine Negative mg/dL (<2.0); WBC Urine 0-3 /hpf
[2020-06-18] MEDS: LORazepam INJ (*CRX) 2 MG/ML VIAL (18:15)
[2020-06-18 21:22] LABS: Glucose Point of Care 131 (65-105)
[2020-06-18] MEDS: ACETAMINOPHEN 325 MG TABLET 650 MG PO (23:15)
--- NOTE | 2020-06-18 23:44 | ADMGEN ---
This patient, Nestor Chauhan Jr., was admitted to Medical Room 344-01. Patient/family oriented to hospital policies and general routines including ID bracelet, bed and alarms, visiting hours, pain management, procedures, bathroom and other care routines, personal items, smoking policy, room service/diet, and visiting hours. Information on how to activate the Rapid Response Team has been discussed. Patient/Family are encouraged to report perceived risks to care and to ask questions if they do not understand what they are told or what they should do.
[2020-06-19] VITALS (12 sets, daily range): BP systolic 130–155; BP diastolic 63–82; PULSE 91–109; RESP 18–40; TEMP 38.1–39.4; O2SAT 89–97
[2020-06-19 01:15] LABS: Basophils Absolute Auto 0.3 K/mm3 (0.0-0.1); Basophils Percent Auto 0.7 % (0.2-1.2); Eosinophils Absolute Auto 0.4 K/mm3 (0-0.3); Eosinophils Percent Auto 0.9 % (0-4.4); Hematocrit 52.4 % (42.0-52.0); Hemoglobin 16.9 g/dL (14.0-18.0); Immature Granulocyte Absolute 1.18 K/mm3 (0.00-0.031); Immature Granulocyte Percent A 2.9 % (0-0.5); Immature Platelet Fraction Pct 14.6 % (0.9-11.2); Lymphocytes Absolute Auto 1.86 K/mm3 (0.9-3.2); Lymphocytes Percent Auto 4.5 % (18.3-44.2); Mean Corpuscular HGB Conc 32.3 g/dl (32-36); Mean Corpuscular Hemoglobin 22.5 pg (26-34); Mean Corpuscular Volume 69.8 fl (80-100); Monocytes Percent Auto 4.8 % (2.6-8.5); Neutrophils Absolute Auto 35.6 K/mm3 (1.3-6.7); Neutrophils Percent Auto 86.2 % (45.5-73.1); Platelet Count Result 412 k/mm3 (150-375); Red Blood Count 7.51 M/mm3 (4.6-6.20); Red Cell Distribution Width 21.6 % (11.5-14.5); White Blood Count 41.3 K/mm3 (4.5-10.0)
[2020-06-19 01:30] LABS: Alanine Aminotransferase 20 U/L (4-50); Albumin Level 4.6 g/dL (3.5-5.1); Alkaline Phosphatase 80 U/L (38-126); Anion Gap 13 mmol/L (8-16); Aspartate Amino Transferase 41 U/L (17-59); Bilirubin,Total 1.7 mg/dL (0.2-1.3); Blood Urea Nitrogen 19 mg/dL (9-20); CRP 2.8 mg/dL (<1.0); Calcium 9.6 mg/dL (8.4-10.2); Carbon Dioxide 21 mmol/L (22-30); Chloride 96 mmol/L (98-107); Estimated CRCL calculation 100 ml/min; Estimated Glomerular Filt Rate > 60; Glucose 130 mg/dL (75-110); Potassium 3.9 mmol/L (3.4-5.0); Sodium 130 mmol/L (137-145)
[2020-06-19 01:46] LABS: Erythrocyte Sedimentation Rate 1 mm/hr (0-20)
[2020-06-19] MEDS: SODIUM CHLORIDE 0.9% IV 1,000 ML 999 ML IV CONT (06:16)
[2020-06-19] MEDS: AMPICILLIN 2 GM/NS 100 ML 2 GM/100 ML BAG IVPB ×3 (06:43→16:32)
[2020-06-19] MEDS: SODIUM CHLORIDE 0.9% IV 1,000 ML 100 ML IV CONT (07:23)
--- NOTE | 2020-06-19 08:35 | PC.NURSE ---
Patient to MRI via hospital stretcher.
--- NOTE | 2020-06-19 08:41 | PM.IMHP ---
H&P: HPI History of Present Illness Date/Time: 06/19/20 08:41 Chief Complaint: Mental status change Narrative: Nestor Chauhan Jr. is a 74 year old male admitted through the emergency room with complaints of having mental status change at home. According to the 5 patient was doing fine till afternoon before he came to the emergency room he started having mental status change. thought that patient is having stroke so she came to the emergency room. In the Emergency Room stroke workup was negative for acute stroke. Patient was admitted for mental status change and high WBC count and possible infection. At present time patient is slightly confused so most of the history was taken from the emergency room notes and the family. However patient denies any shortness of breath or chest pain at present time. Patient moves all extremities. Review of Systems Review of Systems: All systems reviewed & are unremarkable except as noted in HPI and below (in the history and physical.) [facility] Past Medical History Medical History A-fib CVA (cerebral vascular accident) Enlarged prostate Fever History of CVA (cerebrovascular accident) HTN (hypertension) MDS (myelodysplastic syndrome) Rheumatoid arthritis SOB (shortness of breath) Steroid-induced diabetes mellitus Surgical History Surgical History History of cardiac radiofrequency ablation History of surgical amputation of finger of left hand Family History Family History Father Family history of coronary artery disease Family history of cardiovascular disease Mother Hypertension A-fib Sibling Diabetes 1.5, managed as type 2 Kidney failure Sibling Hypertension Other Family history of arthritis Social History Social History Social History: The patient lives with his in [place]. He is a patient of Dr. Pa Nelson. He designates his as his surrogate decision maker and he wishes to be a full code. He drinks a glass of wine each evening. 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 Smoking packs per day: 3 Smoking cigarettes per day: 60.0 Years smoked: 40 Smoking pack-years: 120.00 Smoking status: Former smoker Tobacco type: cigarettes Second hand tobacco smoke exposure: Yes Smoking end date: 02/24/99 Alcohol intake: never Drinks per week: 7 Substance use: never Substance use type: does not use Gender identity (if verbalized by the patient): Male Spiritual care concerns: No Agree to blood products: Yes Meds Home Medications and Allergies Home Medications Medication Instructions Recorded Confirmed Type cyanocobalamin (vitamin B-12) 1,000 mcg PO DAILY 02/24/19 06/18/20 History aspirin 81 mg PO DAILY 60 Days #60 tablet 02/25/19 06/18/20 Rx allopurinol 300 mg PO DAILY 05/30/20 06/18/20 History amlodipine 10 mg PO DAILY 05/30/20 06/18/20 History apixaban [Eliquis] 5 mg PO BID 05/30/20 06/18/20 History lbvz-ltk-yye-ckc-ogqn-vthr-pec 3 tablet PO DAILY 05/30/20 06/18/20 History [Fiber 6] dutasteride 0.5 mg PO DAILY 05/30/20 06/18/20 History folic acid 1 mg PO DAILY 05/30/20 06/18/20 History linagliptin [Tradjenta] 5 mg PO DAILY 05/30/20 06/18/20 History methotrexate sodium 10 mg PO WEEKLY 05/30/20 06/18/20 History omeprazole 20 mg PO DAILY 05/30/20 06/18/20 History ruxolitinib [Jakafi] 10 mg PO BID 05/30/20 06/18/20 History sotalol 80 mg PO BID 05/30/20 06/18/20 History tramadol 50 mg tablet 50 mg PO Q8H PRN tablet 06/17/20 06/18/20 History Allergies Allergy/AdvReac Type Severity Reaction Status Date / Time iodine Allergy Severe Anaphylaxis Verified 06/18/20 18:42 shrimp Allergy Unknown Itching Verified 06/17/20 13:41 Vital Signs Vital Signs - 24 hr 06/18/20 15:10 06/18/20 16:19 06/18/20
--- NOTE | 2020-06-19 09:03 | PC.NURSE ---
Patient returned from MRI via hospital stretcher.
[2020-06-19] MEDS: allopurinoL 300 MG TABLET PO (11:36)
[2020-06-19] MEDS: APIXABAN 5 MG TABLET PO (11:36)
[2020-06-19] MEDS: ASPIRIN 81 MG ENTERIC TABLET PO (11:36)
[2020-06-19] MEDS: FOLIC ACID 1 MG TABLET PO (11:36)
[2020-06-19] MEDS: DUTASTERIDE 0.5 MG CAPSULE PO (11:36)
[2020-06-19] MEDS: amLODIPine BESYLATE 5 MG TABLET 10 MG PO (11:36)
[2020-06-19] MEDS: CYANOCOBALAMIN 1,000 MCG TABLET 1000 MCG PO (11:36)
[2020-06-19] MEDS: PANTOPRAZOLE 40 MG TABLET PO (11:36)
[2020-06-19] MEDS: SOTALOL HCL 80 MG TABLET PO (11:37)
--- NOTE | 2020-06-19 12:41 | PC.NURSE ---
Patient to radiology for lumbar puncture via hospital bed.
--- NOTE | 2020-06-19 13:50 | PC.NURSE ---
Patient returned from radiology via hospital stretcher.
--- NOTE | 2020-06-19 13:59 | WPDINFPN2 ---
Progress Note: A&P Assessment and Plan (1) Fever: Code(s): R50.9 - Fever, unspecified Status: Acute Assessment and Plan: 1. 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 Immunosuppressed 3. Immunocompromised: MDS and RA seronegative 3. Chronic GARCIA REC Ctx Vanc Amp ACV #1. No antifungal as yet, need more information from his LP first. Since he will be transferred shortly, I will not order serologies, but he will need quantiferon and serum Crypto Ag; other testing guided by his LP results. Subjective Date/time seen: 06/19/20 13:59 Objective Data Vital Signs Vital Signs: Vital Signs - 24 hr 06/18/20 15:10 06/18/20 16:19 06/18/20 16:30 Temperature 37.2 C Pulse Rate 75 80 80 Respiratory Rate 16 10 L 13 Blood Pressure 144/68 H Pulse Oximetry 98 98 06/18/20 16:32 06/18/20 16:52 06/18/20 17:03 Temperature Pulse Rate 80 83 87 Respiratory Rate 15 12 16 Blood Pressure 163/96 H Pulse Oximetry 97 06/18/20 17:15 06/18/20 17:30 06/18/20 17:48 Temperature Pulse Rate 86 94 89 Respiratory Rate 19 12 14 Blood Pressure Pulse Oximetry 06/18/20 18:07 06/18/20 18:08 06/18/20 18:16 Temperature Pulse Rate 95 95 98 Respiratory Rate 16 16 20 Blood Pressure 177/100 H Pulse Oximetry 06/18/20 18:30 06/18/20 18:45 06/18/20 19:13 Temperature Pulse Rate 98 100 100 Respiratory Rate 19 17 20 Blood Pressure Pulse Oximetry 06/18/20 19:15 06/18/20 19:18 06/18/20 19:30 Temperature Pulse Rate 101 H 97 93 Respiratory Rate 17 18 17 Blood Pressure 155/118 H Pulse Oximetry 06/18/20 19:48 06/18/20 20:04 06/18/20 20:13 Temperature 37.4 C Pulse Rate 98 97 Respiratory Rate 17 19 Blood Pressure 164/78 H Pulse Oximetry 92 92 96 06/18/20 20:16 06/18/20 20:48 06/18/20 20:54 Temperature Pulse Rate 97 98 97 Respiratory Rate 18 15 15 Blood Pressure 164/94 H Pulse Oximetry 95 97 97 06/18/20 21:04 06/18/20 21:15 06/18/20 21:17 Temperature Pulse Rate 97 100 100 Respiratory Rate 15 17 18 Blood Pressure 167/102 H Pulse Oximetry 97 96 96 06/18/20 21:18 06/18/20 21:30 06/18/20 21:33 Temperature Pulse Rate 100 99 98 Respiratory Rate 18 18 21 H Blood Pressure 139/88 Pulse Oximetry 96 96 96 06/18/20 21:55 06/18/20 22:00 06/18/20 22:16 Temperature Pulse Rate 97 97 Respiratory Rate 19 21 H 19 Blood Pressure 161/78 H Pulse Oximetry 95 94 95 06/18/20 22:17 06/18/20 22:52 06/18/20 22:54 Temperature 38.4 C H Pulse Rate 97 102 H 100 Respiratory Rate 21 H 17 Blood Pressure 164/82 H Pulse Oximetry 95 96 06/18/20 23:15 06/19/20 00:00 06/19/20 00:15 Temperature 38.4 C H 38.1 C H Pulse Rate 106 H Respiratory Rate Blood Pressure Pulse Oximetry 06/19/20 04:00 06/19/20 05:36 06/19/20 08:23 Temperature 38.6 C H Pulse Rate 109 H 104 H 97 Respiratory Rate 18 Blood Pressure 155/82 H Pulse Oximetry 93 06/19/20 10:20 06/19/20 11:37 06/19/20 12:00 Temperature 39.4 C H Pulse Rate 95 94 Respiratory Rate 32 H Blood Pressure 130/63 Pulse Oximetry 93 94 06/19/20 12:40 06/19/20 13:30 Temperature Pulse Rate 96 91 Respiratory Rate 28 H 24 H Blood Pressure 138/73 141/73 H Pulse Oximetry 89 L 97 Intake/Output Intake/Output: Intake & Output 06/16/20 06/17/20 06/18/20 06/19/20 23:59 23:59 23:59 23:59 Intake Total 1725 Balance 1725 Meds/Results Medications: Active Medications Generic Name Dose Route Start Last Admin Trade Name Freq PRN Reason Stop Dose Admin Hydrocodone Bitart/Acetaminophen 1 tab 06/18/20 18:29 Hydrocodone/Acetaminophen (*Crx) 5-325 Mg Tablet PO Q4H PRN Pain Rated 4-6 Allopurinol 300 mg 06/19/20 09:00 06/19/20 11:36 Allopurinol 300 Mg Tablet PO 300 mg DAILY LINDSEY Administration Amlodipine Besylate 10 mg 06/19/20 09:00 06/19/20 11:36 Amlodipine Besylate 5 Mg Tablet PO 10 mg
--- NOTE | 2020-06-19 14:18 | WPDNEURCNPN ---
Assessment and Plan Assessment and plan (1) Rheumatoid arthritis: Code(s): M06.9 - Rheumatoid arthritis, unspecified Status: Acute (2) AMS (altered mental status): Code(s): R41.82 - Altered mental status, unspecified Status: Acute (3) A-fib: Code(s): I48.91 - Unspecified atrial fibrillation Status: Acute (4) History of CVA (cerebrovascular accident): Code(s): Z86.73 - Personal history of transient ischemic attack (TIA), and cerebral infarction without residual deficits Status: Acute (5) Chronic meningitis: Code(s): G03.1 - Chronic meningitis Status: Acute Additional Plan meningitis likely chronic because of the underlying compromised immunological status [facility] informed transfer was arranged after the spinal tap here carried out in the meantime Infectious Disease consult was also obtained and thorough discussion was made with the family CTA has already been done there is no aneurysm his headaches are related to chronic infection Consult date: 06/19/20 Time Seen: 11:00 HPI: Nestor Chauhan Jr. is a 74 year old maleFor the complaints of having mental status change at home reportedly patient was doing fine up until after unknown Tomy came to the emergency room and started having changes in mental status in the emergency room stroke workup was negative patient was admitted to hospital change in the mental status with documented leukocytosis raising the possibility of infection, patient does have ongoing history of atrial fibrillation in addition to history of stroke in the past, hypertension, myelodysplastic syndrome, rheumatoid arthritis, and steroid induced diabetes mellitus, additionally patient have a history of smoking 3 pack of cigarettes per day with years smoked 40 but at present former smoker never a drinker and at the time of admission he was taking aspirin 81 mg daily allopurinol 300 mg daily amlodipine 10 mg daily apixaban 5 mg twice a day folic acid 1 mg daily omeprazole 20 mg daily sotalol 80 mg twice a day tramadol 50 mg p.r.n. patient carries the diagnosis of subarachnoid hemorrhage for that he was arranged for the CTA to rule out the possible aneurysm before any further interventions carried out head neck CTA was negative with normal ventricles 3.2x1.0cm arachnoid cyst in the left frontoparietal region but definitely no aneurysm. , the patient became more draft considering the possibility of the chronic infection in a Immunocompromised patient his spinal tap was ordered and in the meantime patient is a physician was contacted [facility] with possibility of acute acute situation arrangements were made to transfer him to be after the spinal tap is carried out [place] Disease consult was obtained as well and patient was started on the cocktail antibiotic that ceftriaxone 2 g IV piggyback q.12 hours ampicillin 2 g IV piggyback Q 4 hours acyclovir 500 mg IV piggyback q.8 hours and vancomycin 12 50 mg q.12 hours though most likely he will require the treatment for the chronic infection [facility] revealed leukocytosis with WBC 41.3 basic metabolic panel with mild hyponatremia creatinine 0.60 glucose 130, total bilirubin 1.70 with protein of 2.8 and total protein of 9.0, CSF was hazy with force 1022 nucleated cells 90 neutrophils for lymphocyte 6 monocytes and rest pain patient's temp 39.4? with pulse 91 respiration 24 blood pressure 141/73, Pete singh has seen the patient was suggested no anti fungal as yet need more information but he will also need QuantiFERON and serum crypto antigen other testing guided by his spinal fluid results Review of Systems Review of Systems: All systems reviewed & are unremarkable except as noted in HPI and below PMFSH Past Medical History Medical History A-fib CVA (cerebral vascular accident) Enlarged prostate Fever History of
[2020-06-19 14:24] LABS: Appearance CSF Hazy (Clear); CSF source CSF; Color CSF Colorless (Colorless); Lymphocytes CSF 4 % (40-80); Monocytes CSF 6 % (15-45); Neutrophils CSF 90 % (0-6); Nucleated Cell CSF 4022 /uL (0-5); Red Blood Cell CSF 2 (0-2)
--- NOTE | 2020-06-19 15:51 | PM.DS ---
DS: Admitting Diagnosis Admitting Diagnosis Admitting Diagnosis: 1. Acute mental status change 2. Possible meningitis 3. Rule out CVA 4. History of myelodysplastic syndrome 5. Pneumonia this should be considered as a transfer summary instead of discharge summary please thank you DS: Discharge Diagnosis Discharge Diagnosis (1) AMS (altered mental status): Code(s): R41.82 - Altered mental status, unspecified Status: Acute Assessment and Plan: Patient WBC count is high. Will do blood culture urine culture. Chest x-ray shows possible pneumonia. Patient is started on broad-spectrum antibiotic. Will get infectious disease evaluation. Neurology consult is also ordered for possible evaluation of meningitis. Patient WBC count is high. Will do blood culture urine culture. Chest x-ray shows possible pneumonia. Patient is started on broad-spectrum antibiotic. Will get infectious disease evaluation. Neurology consult is also ordered for possible evaluation of meningitis. (2) Rheumatoid arthritis: Code(s): M06.9 - Rheumatoid arthritis, unspecified Status: Acute Assessment and Plan: Will continue home medications. Stable Will continue home medications. Stable (3) MDS (myelodysplastic syndrome): Code(s): D46.9 - Myelodysplastic syndrome, unspecified Status: Acute Assessment and Plan: Baseline WBC count rounds and 30s feel better. Today the WBC count is in 40s will continue with IV antibiotics and monitor labs. Baseline WBC count rounds and 30s feel better. Today the WBC count is in 40s will continue with IV antibiotics and monitor labs. (4) A-fib: Code(s): I48.91 - Unspecified atrial fibrillation Status: Acute Assessment and Plan: Will continue with Eliquis. And monitor heart rate. Will continue with Eliquis. And monitor heart rate. (5) History of CVA (cerebrovascular accident): Code(s): Z86.73 - Personal history of transient ischemic attack (TIA), and cerebral infarction without residual deficits Status: Acute Assessment and Plan: Workup for CVAs is continue and neurology consult is ordered Workup for CVAs is continue and neurology consult is ordered DS: Summary Hospital Course Reason for hospitalization: Mental status change Hospital Course: Patient was admitted in the hospital. Patient was given IV antibiotics. Neurology and ID consult was performed. Lumbar puncture was done and suspicion for meningitis was high. After discussion with the neurologist patient will transfer to tertiary care hospital in stable condition. Workup for CVA will also continue. Condition at the time of discharge is stable. Family notified. Time spent discussing smoking cessation with patient: more than 10 minutes Status at Discharge Cognitive/behavioral status at discharge: Stable Overall status at discharge: patient is not back to baseline Time Spent with Patient Time attestation: Total time spent providing and/or coordinating discharge services: Time spent: Greater than 30 minutes Specific discharge activities: As tolerated Exam Narrative: Exam Narrative: Exam Narrative: GENERAL: Well-appearing, well-nourished, and in no acute distress. HEAD: Normocephalic, atraumatic. EYES: PERRL and EOMI. ENT: Mucous membranes moist. CHEST: Clear to auscultation. No respiratory distress. HEART: Regular rate and rhythm. Normal peripheral pulses. ABDOMEN: Soft, nontender, nondistended. EXTREMITIES: Normal range of motion. No edema. SKIN: Warm, dry, no rash. NEURO: Awake and alert. Able to intermittently follow commands. Cranial nerves II through XII intact. Patient has some clear speech but he is unable to communicate what he wants or what he needs. No lower extremity drift. Right upper extremity drifts upward and pronates. Sensation intact. Unable to perform finger-nose testing and [id number] testing due to inability to understand directions. DS: Data
--- NOTE | 2020-06-19 18:34 | CONS_ITS ---
DATE OF CONSULTATION: 06/19/2020 REASON FOR CONSULTATION: Fever. HISTORY OF THE PRESENT ILLNESS: A 74-year-old male who cannot provide any history. He has seronegative RA as well as myelodysplastic syndrome. At home, he is on prednisone until March when this was stopped. He is now on methotrexate 10 mg weekly and also on Jakafi also known as ruxolitinib. The latter is apparently being given for his myelodysplastic syndrome, not by his accounts receivable representative. The patient has been having headache for at least the last 6 weeks, perhaps longer. He saw Dr. Nelson for a scheduled visit one-day before admission, he reviewed a brain MRI results, which were abnormal. He then had a CT angiogram of the brain, which revealed no aneurysms. At that time, the patient was on no antimicrobials and followup was arranged before the patient could have his CT performed. He presented to the emergency room yesterday with an acute onset of confusion, difficulty speaking and gait disturbance. His got him in the car and they presented him in the emergency room. He was admitted, and now been given ceftriaxone, vancomycin, acyclovir and ampicillin. Lumbar puncture was just performed and the nurse reports that cloudy fluid was evacuated from the lumbar region. He cannot provide any additional history. PRESENT MEDICATIONS: List reviewed as above. ALLERGIES: NO KNOWN DRUG ALLERGIES. HABITS: Quit smoking in 1998, 1 drink per day. No illicit drugs. 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 He has also had previous hepatitis C screening that was negative. He has a chronic leukocytosis. Review of laboratories on the EMR going back to October 2009 shows normal PSAs, CRP 1.7 two years ago and no QuantiFERON testing. REVIEW OF SYSTEMS: 14-point review otherwise negative per record, not obtainable from the patient due to decreased level of consciousness. FAMILY HISTORY: Stroke, heart disease, hypertension, AF, diabetes. SOCIAL HISTORY: No family at the bedside. He is . Lives locally. 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 PHYSICAL EXAMINATION: GENERAL: Elderly male, who appears acutely ill, thin but not cachectic. He is somnolent. VITAL SIGNS: Temperature up to 39.4 two hours ago, 141/73, 91, 24, 97% saturation with nasal cannula in his mouth. SKIN: No skin breakdown. No rashes. Warm and dry. No erythroderma. NODES: He has no cervical or axillary adenopathy. EENT: He resists eye exam, but pupils appear reactive. There is no conjunctival injection. No petechiae. Has no discharge. Paranasal sinuses without apparent erythema, edema, tenderness. He has dried blood at the external nose. No active bleeding otherwise. He has dried mucus over the soft and hard palate. No thrush. Dry mucous membranes overall. Teeth in fair repair. NECK: No true meningismus. No neck masses. Contour is normal. LUNGS: On tidal respirations. Clear to auscultation and percussion. CHEST: Equal expansion. Normal AP diameter. No indwelling vascular devices. CARDIAC: Soft, S1, S2. Regular rate and rhythm. No ectopy. No murmurs. Dorsalis pedis pulses are trace. Radial pulses 1+. ABDOMEN: No bruits. He has no bowel sounds. Not distended. No masses. No organomegaly. His adult diaper in place. No Couch catheter. EXTREMITIES: No splinter hemorrhages. No clubbing, cyanosis, or edema. MUSCULOSKELETAL: No surgical incisions over his joints. NEUROLOGIC: Somnolent. He has normal muscle tone. Unable to test his strength. Plantar reflexes are downgoing. He is hyporeflexia. Face is symmetric. There is no tremor. LABORATORY DATA: White count 41.3, wa
[2020-06-21 13:57] LABS: VZV DNA, QL PCR Not Detected (Not Detected); Varicella Zoster Source CSF
[2020-06-28 14:04] LABS: Albumin, Serum 3.9 g/dL (3.2-4.6); IgG Index, CSF 0.75 (<0.66); IgG, CSF 38.9 mg/dL (0.8-7.7); Immunoglobulin G, Serum 1880 mg/dL (600-1540); Myelin Basic Protein, CSF <2.0 mcg/L (2.0-4.0)
== END 2020-06-19 18:25 | disposition short-term general hospital (02) | DRG 97 ==
LOC: ANHED 18:37 → ANH3MED 22:02
PROVIDERS: Emergency Medicine Emergency Medical Services; Physician Assistant; Psychiatry & Neurology Neurology; Admitting Provider Internal Medicine; Emergency Provider Emergency Medicine; PCP Family Medicine; Visit Provider Internal Medicine
DX: G03.9 Meningitis, unspecified (principal); J18.9 Pneumonia, unspecified organism; E87.1 Hypo-osmolality and hyponatremia; I48.20 Chronic atrial fibrillation, unspecified; R41.82 Altered mental status, unspecified; M06.9 Rheumatoid arthritis, unspecified; D46.9 Myelodysplastic syndrome, unspecified; D72.828 Other elevated white blood cell count; Z86.73 Personal history of transient ischemic attack (TIA), and cerebral infarction without residual deficits; Z89.022 Acquired absence of left finger(s); Z87.891 Personal history of nicotine dependence
CPT/HCPCS: 36415; 62328; 70450; 70496; 70498; 70553; 71045; 80048; 80053; 81001; 82040; 82042; 82784; 82948; 83605; 83873; 83916; 84484; 85025; 85055; 85610; 85652; 85730; 86140; 86617; 86635; 86787; 86788; 87040; 87102; 87206; 87497; 87798; 88108; 89051; 96365; 96367; 96375; 99285; A9270; A9577; G0378; J0131; J0133; J0290; J0696; J1200; J2060; J2930; J3370; J7030; Q9967

== ENCOUNTER → 2020-12-02 12:03 | Outpatient (CLI) | payer MEDICARE, SELFPAY ==
--- NOTE | ~2020-12-02 | XR_ITS ---
EXAMINATION: XR lumbar spine 2-3V DATE: 12/02/2020 12:26 INDICATION: Low back pain TECHNIQUE: Anteroposterior and lateral views of the lumbar spine, and cone-down lateral view of the l umbosacral junction were obtained. COMPARISON: None. FINDINGS: There is no fracture, dislocation, or subluxation. There is mild loss of intervertebral dis c space height at L2-3 and L4-5. The vertebral body heights are maintained. Small degenerative osteop hytes project from the anterior endplates of multiple vertebral bodies. There is mild facet osteoarth ritis. The bowel gas pattern is normal. IMPRESSION: 1. Mild lumbar spondylosis without acute findings. Reviewed, dictated and finalized at location B.
--- NOTE | ~2020-12-02 | XR_ITS ---
EXAMINATION: XR thoracic spine 3V DATE: 12/02/2020 12:26 INDICATION: Back pain TECHNIQUE: AP, lateral and lateral swimmer's views of the thoracic spine were obtained. COMPARISON: 06/18/2020, 07/13/2019 FINDINGS: There is a compression fracture of T5 with 50% loss of vertebral body height. There is a co mpression fracture of T8 with 30% loss of vertebral body height. The remaining thoracic vertebral bod ies are maintained. There is mild loss of intervertebral disc space height at several levels in the t horacic spine. Bone alignment is normal. IMPRESSION: 1. Age-indeterminate compression fractures of T5 and T8, new since the comparison examinations. Reviewed, dictated and finalized at location B. IMPRESSION: 1. Age-indeterminate compression fractures of T5 and T8, new since the comparis on examinations.
== END ==
PROVIDERS: PCP Family Medicine; Visit Provider Family Medicine
DX: M54.6 Pain in thoracic spine (principal); M54.5 Low back pain; M48.54XA Collapsed vertebra, not elsewhere classified, thoracic region, initial encounter for fracture; M47.816 Spondylosis without myelopathy or radiculopathy, lumbar region
CPT/HCPCS: 72072; 72100

== ENCOUNTER 2020-12-06 08:45 | Outpatient (CLI) | payer MEDICARE, SELFPAY ==
--- NOTE | ~2020-12-06 | CT_ITS ---
EXAMINATION: CT thoracic spine wo con DATE: 12/06/2020 09:11 INDICATION: Thoracic spine with T5 and T8 compression fractures. TECHNIQUE: Computed tomography (CT) of the thoracic spine was performed without intravenous contrast. Automated exposure control and iterative reconstruction technique were employed. The dose-length pro duct was 879.86 mGy-cm. COMPARISON: None FINDINGS: Alignment is normal. Relatively recent-appearing burst fractures at T6 and T8. At T6 there is 50% ernie tral vertebral body height loss and a couple mm of retropulsion resulting in mild central canal steno sis. At T8 there is 40% central vertebral body height loss and without retropulsion. The vertebral sheldon dy height loss of her results in some inward bulging of the epidural fat also resulting in mild centr al canal stenosis at this level. There is mild edema/hemorrhage along the margins of both vertebral b odies. Age indeterminate T4 compression fracture with 20% central vertebral body height loss but with out a clearly defined recent-appearing fracture plane or surrounding edema/hemorrhage. Chronic appear ing small Schmorl's node along the superior endplate of T11. Remaining vertebral body heights are nor mal. No other fractures identified. There is mild neural foraminal stenosis bilaterally at T6-T7 and mild left-sided and moderate right-sided neural foraminal stenosis at T8-T9. IMPRESSION: 1. Acute to subacute burst fractures at T6 and T8 with moderate vertebral body height loss age-indete rminate mild T4 compression fracture. Reviewed, dictated and finalized at location A. IMPRESSION: 1. Acute to subacute burst fractures at T6 and T8 with moderate vertebral body height loss age-indeterminate mild T4 compression fracture.
== END 2020-12-06 08:46 | disposition home or self-care (01) ==
LOC: ANHIMG 08:46
PROVIDERS: PCP Family Medicine; Visit Provider Family Medicine
DX: S22.061A Stable burst fracture of T7-T8 vertebra, initial encounter for closed fracture (principal); S22.051A Stable burst fracture of T5-T6 vertebra, initial encounter for closed fracture; X58.XXXA Exposure to other specified factors, initial encounter
CPT/HCPCS: 72128

== ENCOUNTER 2022-06-02 14:39 | Inpatient (IN) | payer MEDICARE, SELFPAY ==
[2022-06-02] VITALS (12 sets, daily range): BP systolic 125–142; BP diastolic 69–78; PULSE 77–88; RESP 19–23; TEMP 36.2–36.8; O2SAT 91–93; BMI 25.1
--- NOTE | ~2022-06-02 | XR_ITS ---
EXAMINATION: XR chest 2V DATE: 06/02/2022 16:04 INDICATION: Cough and shortness of breath. TECHNIQUE: Frontal and lateral views of the chest were obtained. COMPARISON: Chest single view 06/18/2020, thoracic spine CT 12/06/2020 FINDINGS: The lung volumes are small. There are airspace opacities at the lung bases. There is a smal l left pleural effusion. No pneumothorax. The heart size is normal. There is height loss of many vert ebral bodies with interval worsening, but likely chronic. IMPRESSION: 1. Small lung volumes with airspace opacities at the lung bases, consistent with atelectasis versus p neumonia. 2. Small left pleural effusion. Reviewed, dictated and finalized at location A. OPERATOR IMPRESSION: 1. Small lung volumes with airspace opacities at the lung bases, consistent wit h atelectasis versus pneumonia. 2. Small left pleural effusion.
--- NOTE | 2022-06-02 14:47 | ECG_ITS ---
Measurements Intervals Peel Rate: 88 P: 65 OH: 235 QRS: 2 QRSD: 117 T: 22 QT: 381 QTc: 461 Interpretive Statements SINUS RHYTHM WITH FIRST DEGREE AV BLOCK COMPARED TO ECG 08/14/2019 17:54:02 FIRST DEGREE AV BLOCK NOW PRESENT Electronically Signed On 06-02-2022 15:02:50 ROCK CRUSHER OPERATOR by Shreya Lucas M.D.
[2022-06-02 16:22] LABS: Hematocrit 33.3 % (42.0-52.0); Hemoglobin 10.4 g/dL (14.0-18.0); Mean Corpuscular HGB Conc 31.2 g/dl (32-36); Mean Corpuscular Hemoglobin 29.4 pg (26-34); Mean Corpuscular Volume 94.1 fl (80-100); Mean Platelet Volume 11.9 fl (7.4-10.4); Platelet Count Result 190 k/mm3 (150-375); Red Blood Count 3.54 M/mm3 (4.6-6.20); Red Cell Distribution Width 20.1 % (11.5-14.5); White Blood Count 18.2 K/mm3 (4.5-10.0)
[2022-06-02 16:26] LABS: Alanine Aminotransferase 16 U/L (6-50); Albumin Level 4.5 g/dL (3.5-5.1); Alkaline Phosphatase 60 U/L (38-126); Anion Gap 7 mmol/L (8-16); Aspartate Amino Transferase 32 U/L (17-59); Blood Urea Nitrogen 27 mg/dL (9-20); Calcium 8.4 mg/dL (8.4-10.2); Carbon Dioxide 26 mmol/L (22-30); Chloride 99 mmol/L (98-107); Estimated CRCL calculation 85 ml/min; Estimated Glomerular Filt Rate > 60; Glucose 112 mg/dL (65-110); Potassium 4.1 mmol/L (3.4-5.0); Sodium 132 mmol/L (137-145)
[2022-06-02 16:30] LABS: Influenza A QL RT-PCR Negative (Negative); Influenza B QL RT-PCR Negative (Negative); RSV RNA, RT-PCR Negative (Negative); SARS-CoV-2 RNA PCR Negative
[2022-06-02 16:35] LABS: NT Pro B Type Natriuretic Pept 373 pg/mL (19.9-100); Troponin I < 0.012 ng/mL (0.000-0.034)
[2022-06-02 17:01] LABS: Band Neutrophils Percent 5 % (0-6); Lymphocytes Absolute Manual 1.27 K/mm3 (1.1-4.5); Lymphocytes Percent Manual 7 % (18-44); Metamyelocytes Percent 2 %; Monocytes Absolute Manual 4.55 K/mm3 (0.1-0.90); Monocytes Percent Manual 25 % (3-9); Neutrophils Absolute Manual 11.64 K/mm3 (1.3-6.7); Neutrophils Percent Manual 59 % (46-73); Total Cells Counted 100
[2022-06-02 17:02] LABS: Ovalocytes 1+ (NORMAL); Platelet Estimate Adequate (Adequate); Promyelocytes Percent 2 %; Schistocytes None Seen (NORMAL)
--- NOTE | 2022-06-02 17:55 | PC.NURSE ---
Pt states daughter will bringing up pt's chemo medication (Idhifa and Jakafi).
--- NOTE | 2022-06-02 17:58 | ED.SOB ---
HPI - SOB/Dyspnea General Chief Complaint: Shortness of Breath/Dyspnea Stated Complaint: low oxygen sat Time Seen by Provider: 06/02/22 15:31 History of Present Illness HPI Narrative: 76yoM h/o MDS following w/ [facility] p/w increased dyspnea and cough, had course of augmentin w/o improvement. Taking chemo meds as rx'ed. Related Data Home Medications Medication Instructions Recorded Confirmed dapsone 100 mg tablet 100 mg PO DAILY 12/02/20 12/26/21 dutasteride 0.5 mg capsule 0.5 mg PO DAILY 12/02/20 12/26/21 (Avodart) folic acid 1 mg tablet 1 mg PO DAILY 12/02/20 12/26/21 insulin aspart U-100 100 unit/mL 5 unit subcut TID 12/02/20 12/26/21 (3 mL) subcutaneous pen (Novolog FlexPen U-100 Insulin aspart) linagliptin 5 mg tablet (Tradjenta) 5 mg PO QAM 12/02/20 12/26/21 omeprazole 20 mg capsule,delayed 20 mg PO DAILY 12/02/20 12/26/21 release ondansetron HCl 8 mg tablet 8 mg PO Q8H 12/02/20 12/26/21 psyllium husk 0.4 gram capsule 0.4 g PO DAILY 12/02/20 12/26/21 (Daily Fiber) ruxolitinib 10 mg tablet (Jakafi) 10 mg PO BID 12/02/20 12/26/21 sotalol 80 mg tablet 80 mg PO BID 12/02/20 12/26/21 tramadol 50 mg tablet 50 mg PO Q6H PRN Pain 12/02/20 12/26/21 calcium carbonate 400 mg calcium 400 mg PO BID 06/24/21 12/26/21 (1,000 mg) chewable tablet insulin NPH isoph U-100 human 100 5 unit subcut QAM 06/24/21 12/26/21 unit/mL (3 mL) subcutaneous pen (Humulin N NPH U-100 Insulin KwikPen) lorazepam 0.5 mg tablet 0.5 mg PO BID 06/24/21 12/26/21 enasidenib 50 mg tablet 50 mg PO .COMPLEX 03/12/22 03/12/22 hydroxyurea 500 mg capsule 500 mg PO .COMPLEX 03/12/22 03/12/22 Allergies Allergy/AdvReac Type Severity Reaction Status Date / Time iodine Allergy Severe Anaphylaxis Verified 03/12/22 13:22 shrimp Allergy Unknown Itching Verified 03/12/22 13:22 Review of Systems Review of Systems: CONST: No fever. HEENT: No sore throat C/V: No chest pain RESP: Shortness of breath and cough GI: No abdominal : No dysuria. M/S: No joint pain. SKIN: No rash. NEURO: [No headache or focal numbness or weakness] PSYCH: [No depression] [facility] Past Medical History Medical History A-fib CVA (cerebral vascular accident) Enlarged prostate Fever History of CVA (cerebrovascular accident) HTN (hypertension) Lumbar compression fracture MDS (myelodysplastic syndrome) Rheumatoid arthritis SOB (shortness of breath) Steroid-induced diabetes mellitus Surgical History Surgical History History of cardiac radiofrequency ablation History of surgical amputation of finger of left hand Family History Family History Father Family history of coronary artery disease Family history of cardiovascular disease Mother Hypertension A-fib Sibling Diabetes 1.5, managed as type 2 Kidney failure Sibling Hypertension Other Family history of arthritis Social History Social History Social History: The patient lives with his in [place]. He is a patient of Dr. Pa Nelson. He designates his as his surrogate decision maker and he wishes to be a full code. He drinks a glass of wine each evening. 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 Smoking packs per day: 3 Smoking cigarettes per day: 60.0 Years smoked: 40 Smoking pack-years: 120.00 Smoking status: Former smoker Tobacco type: cigarettes Second hand tobacco smoke exposure: Yes Smoking end date: 02/24/99 Alcohol intake: never Drinks per week: 7 Alcohol use details: He typically drinks a glass a wine each night. Substance use: never Substance use type: does not use Living arrangements: with family Occupation/Education: retired Gender identity (if verbalized by the patient): Male Spiritual care concerns: No Agree to blood products:
--- NOTE | 2022-06-02 19:55 | PC.NURSE ---
Spoke with Kathleen with [facility] triage at this time for triage. [phone]. No update on room.
--- NOTE | 2022-06-02 20:52 | PC.NURSE ---
Addendum entered by Isha Ewing RN 06/02/22 20:54: ANGELO Kim report given at this time. Pt will be moved to room 309 instead of 315-02. Original Note: ANGELO Kim report given at this time.
--- NOTE | 2022-06-02 21:15 | PM.IMHP ---
H&P: HPI History of Present Illness Date/Time: 06/02/22 21:15 Chief Complaint: Acute dyspnea Narrative: This is a 76-year-old male patient who is a very poor historian and hard of hearing. The patient has a history of MDS and he is being followed up with [facility] providers. The patient came in with increased dyspnea and cough. The patient had already been treated with a course of Augmentin without any improvement. The patient has been taking his chemotherapy medications as prescribed. His white count is 18.2. His H&H is 10.4 and 33.3. Sodium 132. The patient is negative for influenza A/B RSV and COVID. Chest x-ray was read as the following?Small lung volumes with airspace opacities at the lung bases, consistent with atelectasis versus pneumonia. 2. Small left pleural effusion. The patient's oncologist is at [facility] and he has been accepted to [facility] however will be approximately 1 week before they will be able to get a bed for him. The patient was started on cefepime, vancomycin and doxycycline. The patient is being admitted to inpatient status on the date of service of 06/02/2022. Review of Systems Review of Systems: See HPI All systems reviewed & are unremarkable except as noted in HPI and below Constitutional: Constitutional: Reports as per HPI and Reports no additional constitutional complaints Eyes: Eyes: Reports as per HPI and Reports no additional eye complaints ENT: Reports system reviewed and no additional complaints, except as documented and Reports Normal hearing present Cardiovascular: Cardiovascular: Reports no additional cardiovascular complaints Respiratory: Respiratory: Reports no additional respiratory complaints and Reports no additional respiratory complaints Gastrointestinal: Gastrointestinal: Reports as per HPI and Reports no additional gastrointestinal complaints Musculoskeletal: Musculoskeletal: Reports no additional musculoskeletal complaints Integumentary/Breasts: Skin/Breast: Reports system reviewed and no additional complaints, except as docu and Reports as per HPI Neurologic: Reports system reviewed and no additional complaints, except as documented, Reports as per HPI and Reports Normal hearing present Psychiatric: Psychiatric: Reports no additional psychiatric complaints and Reports as per HPI Endocrine: Endocrine: Reports no additional endocrine complaints Hematologic/Lymphatic: Hematologic/Lymphatic: Reports no additional hematologic/lymphatic complaints Allergic/Immunologic: Allergic/Immunologic: Reports no additional allergic/immunologic complaints [facility] Past Medical History Medical History (Updated 06/03/22 @ 01:30 by Racquel Andres NP) A-fib CVA (cerebral vascular accident) Enlarged prostate Fever History of CVA (cerebrovascular accident) HTN (hypertension) Lumbar compression fracture MDS (myelodysplastic syndrome) Rheumatoid arthritis SOB (shortness of breath) Steroid-induced diabetes mellitus Surgical History Surgical History (Updated 06/03/22 @ 01:16 by Racquel Andres NP) H/O colonoscopy with polypectomy History of cardiac radiofrequency ablation History of surgical amputation of finger of left hand Family History Family History Father Family history of coronary artery disease Family history of cardiovascular disease Mother Hypertension A-fib Sibling Diabetes 1.5, managed as type 2 Kidney failure Sibling Hypertension Other Family history of arthritis Social History Social History Social History: The patient lives with his in [place]. He is a patient of Dr. Pa Nelson. He designates his as his surrogate decision maker and he wishes to be a full code. He drinks a glass of wine each evening. 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 Smoking packs per day: 3 Smoking cigarettes per day: 60.0 Years smoked: 40 Sm
[2022-06-02] MEDS: DOXYCYCLINE 100 MG/NS 100 ML 100 MG/100 ML BAG IVPB (22:15)
--- NOTE | 2022-06-02 22:21 | ADMGEN ---
This patient, Nestor Chauhan Jr., was admitted to [facility] Room 309-01. Patient/family oriented to hospital policies and general routines including ID bracelet, bed and alarms, visiting hours, pain management, procedures, bathroom and other care routines, personal items, smoking policy, room service/diet, and visiting hours. Information on how to activate the Rapid Response Team has been discussed. Patient/Family are encouraged to report perceived risks to care and to ask questions if they do not understand what they are told or what they should do.
--- NOTE | 2022-07-02 21:20 | PM.TDS ---
Transfer Discharge Sum: Prov Provider Date of admission: 06/02/22 18:34 Primary care physician: Pa Nelson MD Admitting clinician: Sunny Barber MD Consults: 06/03/22 Consult to Physician Routine Comment: Consulting Provider: call or contact centre operator/MD group to consult: Dr. Veras Reason for consultation: Myelodysplastic syndrome Has provider been notified: No DS: Admitting Diagnosis Discharge Date 06/03/22 Admitting Diagnosis Pneumonia DS: Discharge Diagnosis Discharge Diagnosis (1) Pneumonia: Code(s): J18.9 - Pneumonia, unspecified organism Status: Acute Assessment and Plan: -the patient was started on cefepime and vancomycin as well as doxycycline. I continued with the vancomycin and the cefepime. -patient has leukocytosis a white count being 18.2 Tailor antibiotics to cultures. -blood and sputum cultures are pending. -continue with nebulizer treatments. (2) Acute respiratory failure with hypoxia: Code(s): J96.01 - Acute respiratory failure with hypoxia Status: Acute Assessment and Plan: The patient does not typically wear oxygen at home. He was hypoxic and is requiring oxygen at 2 L per nasal cannula. Wean off of oxygen when able. Otherwise may need to perform a home O2 evaluation. (3) History of CVA (cerebrovascular accident): Code(s): Z86.73 - Personal history of transient ischemic attack (TIA), and cerebral infarction without residual deficits Status: Acute Assessment and Plan: -the patient is not been responding and only answering yes and no. Patient has had a hard time hearing me as well to answer the questions. (4) HTN (hypertension): Code(s): I10 - Essential (primary) hypertension Status: Acute Assessment and Plan: -continue with Avodart and Norvasc (5) MDS (myelodysplastic syndrome): Code(s): D46.9 - Myelodysplastic syndrome, unspecified Status: Acute Assessment and Plan: -I asked the patient if he wanted to see the oncologist here he said that would be great if I could consult the oncologist here. The patient typically gets his treatment at [facility] but there are no beds available at this time. -the patient is on hydroxyurea (6) A-fib: Code(s): I48.91 - Unspecified atrial fibrillation Status: Acute Assessment and Plan: -the patient is in sinus rhythm at this time. Continue with Eliquis and Betapace (7) Steroid-induced diabetes mellitus: Code(s): E09.9 - Drug or chemical induced diabetes mellitus without complications; T38.0X5A - Adverse effect of glucocorticoids and synthetic analogues, initial encounter Status: Acute Assessment and Plan: -Accu-Cheks AC and HS. Sliding scale insulin and check A1c. Tradjenta is non formulary. Continue with hypoglycemic protocol. Continue with NPH Transfer Discharge Sum: Med Medications Active and Home Medications: Home Medications dapsone 100 mg tablet 100 mg PO DAILY 12/02/20 [History Confirmed 06/02/22] dutasteride 0.5 mg capsule (Avodart) 0.5 mg PO DAILY 12/02/20 [History Confirmed 06/02/22] folic acid 1 mg tablet 1 mg PO DAILY 12/02/20 [History Confirmed 06/02/22] insulin aspart U-100 100 unit/mL (3 mL) subcutaneous pen (Novolog FlexPen U-100 Insulin aspart) See Rx Instructions .Route .COMPLEX 12/02/20 [History Confirmed 06/02/22] linagliptin 5 mg tablet (Tradjenta) 5 mg PO QAM 12/02/20 [History Confirmed 06/03/22] omeprazole 20 mg capsule,delayed release 20 mg PO DAILY 12/02/20 [History Confirmed 06/02/22] ondansetron HCl 8 mg tablet 8 mg PO Q8H PRN Nausea And Vomiting 12/02/20 [History Confirmed 06/02/22] psyllium husk 0.4 gram capsule (Daily Fiber) 0.4 g PO DAILY 12/02/20 [History Confirmed 06/03/22] ruxolitinib 10 mg tablet (Jakafi) 10 mg PO BID 12/02/20 [History Confirmed 06/02/22] sotalol 80 mg tablet 80 mg PO BID 12/02/20 [History Confirmed 06/02/22] tramadol 50 mg tablet 50 mg PO BID PRN Pain (Sc
== END 2022-06-03 01:15 | disposition short-term general hospital (02) | DRG 193 ==
LOC: ANHED 18:33 → ANH3MEDSUR 20:11
PROVIDERS: Emergency Medicine; Admitting Provider Internal Medicine; Emergency Provider Emergency Medicine; PCP Family Medicine; Visit Provider Internal Medicine
DX: J18.9 Pneumonia, unspecified organism (principal); J96.01 Acute respiratory failure with hypoxia; Z20.822 Contact with and (suspected) exposure to COVID-19; D46.9 Myelodysplastic syndrome, unspecified; I48.91 Unspecified atrial fibrillation; I10 Essential (primary) hypertension; E09.9 Drug or chemical induced diabetes mellitus without complications; T38.0X5A Adverse effect of glucocorticoids and synthetic analogues, initial encounter; M06.9 Rheumatoid arthritis, unspecified; Z79.4 Long term (current) use of insulin; Z89.022 Acquired absence of left finger(s); Z87.891 Personal history of nicotine dependence; Z86.73 Personal history of transient ischemic attack (TIA), and cerebral infarction without residual deficits
CPT/HCPCS: 36415; 71046; 80053; 83880; 84484; 85025; 87637; 93005; 99285; J0692; J1100; J3370

== ENCOUNTER 2022-07-26 08:38 | Emergency (ER) | payer MEDICARE, SELFPAY ==
[2022-07-26] VITALS (13 sets, daily range): BP systolic 97–122; BP diastolic 57–78; PULSE 83–90; RESP 14–20; TEMP 37; O2SAT 93–98
--- NOTE | ~2022-07-26 | CT_ITS ---
EXAMINATION: CT cervical spine wo con DATE: 07/26/2022 09:19 INDICATION: Head injury. TECHNIQUE: Computed tomography (CT) of the cervical spine was performed without intravenous contrast. Automated exposure control and iterative reconstruction technique were employed. The dose-length pro duct was 459.01 mGy-cm. COMPARISON: None FINDINGS: There is 2 mm retrolisthesis of C5 on C6. There is mild chronic height loss of T2 and T3 ve rtebral bodies. There is mildly decreased disc height at C3-C4 and C4-C5, severely decreased disc hei ght at C5-C6, and moderately decreased disc height at C6-C7. The following disc levels are specifical ly discussed: C2-C3: There is mild bilateral uncovertebral joint osteoarthritis. There is severe bilateral facet bryant int osteoarthritis. There is mild bilateral neural foraminal stenosis. There is no central canal sten osis. C3-C4: There is severe bilateral uncovertebral joint osteoarthritis. There is severe bilateral facet joint osteoarthritis. There is moderate bilateral neural foraminal stenosis. There is mild central ca nal stenosis. C4-C5: There is mild bilateral uncovertebral joint osteoarthritis. There is severe bilateral facet bryant int osteoarthritis. There is mild bilateral neural foraminal stenosis. There is mild central canal st enosis. C5-C6: There is severe right and mild left uncovertebral joint osteoarthritis. There is mild right an d severe left facet joint osteoarthritis. There is mild bilateral neural foraminal stenosis. There is moderate central canal stenosis. C6-C7: There is mild bilateral uncovertebral joint osteoarthritis. There is severe left facet joint o steoarthritis. There is mild left neural foraminal stenosis. There is mild central canal stenosis. C7-T1: There is no uncovertebral joint osteoarthritis. There is moderate right and severe left facet joint osteoarthritis. There is mild left neural foraminal stenosis. There is no central canal stenosi s. IMPRESSION: 1. No acute fracture. 2. Severe cervical spondylosis. Reviewed, dictated and finalized at location A.
--- NOTE | ~2022-07-26 | XR_ITS ---
EXAMINATION: XR chest 1V DATE: 07/26/2022 09:22 INDICATION: Weakness. Fall. TECHNIQUE: A single frontal view of the chest was obtained. COMPARISON: Chest 2 views 06/02/2022 FINDINGS: There is a small left pleural effusion. There are airspace opacities at left lung base. No pneumothorax. Cardiomegaly is noted. IMPRESSION: 1. Stable airspace opacities at left lung base, consistent with atelectasis versus pneumonia. 2. Stable small left pleural effusion. 3. Cardiomegaly. Reviewed, dictated and finalized at location A. IMPRESSION: 1. Stable airspace opacities at left lung base, consistent with atelectasis koki carly pneumonia. 2. Stable small left pleural effusion. 3. Cardiomegaly.
--- NOTE | ~2022-07-26 | CT_ITS ---
EXAMINATION: CT brain wo con DATE: 07/26/2022 09:19 INDICATION: Head injury. TECHNIQUE: Computed tomography (CT) of the head was performed without intravenous contrast. The mA wa s adjusted according to patient size. Iterative reconstruction technique was employed. The dose-lengt h product was 681.00 mGy-cm. COMPARISON: Head CT 06/18/2020 FINDINGS: There is a small old infarct in right cerebellum. There is chronic encephalomalacia in the temporal lobes bilaterally. There is chronic encephalomalacia in anterior and inferior left frontal l obe. There are scattered areas of low attenuation in the cerebral white matter. There is no intracran ial hemorrhage, acute infarction, or abnormal intracranial mass lesion. The ventricles are normal in size. There is mild mucosal thickening in the paranasal sinuses. There are likely changes of ocular l ens replacement surgeries. The mastoid air cells are normal. There is forehead soft tissue swelling. IMPRESSION: 1. Chronic encephalomalacia in the temporal lobes and left frontal lobe. 2. Small old infarct in right cerebellum. 3. Worsened moderate nonspecific cerebral white matter disease, which likely represents chronic small vessel ischemic disease. Reviewed, dictated and finalized at location A. IMPRESSION: 1. Chronic encephalomalacia in the temporal lobes and left frontal lobe. 2. Small old infarct in right cerebellum. 3. Worsened moderate nonspecific cerebral white matter disease, which likely re presents chronic small vessel ischemic disease.
--- NOTE | 2022-07-26 10:34 | ED.GENADULT ---
HPI - General Adult General Chief complaint: Wound/Laceration <Mohan Kunz DO - Last Filed: 07/26/22 11:26> Stated complaint: fall- lac <Mhoan Kunz DO - Last Filed: 07/26/22 11:26> Source: family, EMS and RN notes reviewed <Mohan Kunz DO - Last Filed: 07/26/22 11:26> History of Present Illness HPI narrative: Patient presents emergency department from home via EMS for a fall. Patient gotten up to go get his coffee this morning he states he was walking back and his feet got tangled up in his oxygen tubing and he fell striking the left side of his face. The patient was noted to have a laceration to his forehead was sent to the ER for further evaluation. History is per the patient as well as the patient's this present the patient was just admitted to [facility] and discharged with pneumonia in the left lower lung and is still currently on antibiotics he has been having no shortness of breath or any other acute changes at home. He notes pain to his left forehead but had no loss of consciousness he does have a c-collar present he denies any chest pain shortness of breath abdominal pain nausea vomiting is chronically on nasal cannula at 4 L <Mohan Kunz DO - Last Filed: 07/26/22 11:26> Related Data Home medications: Home Medications Medication Instructions Recorded Confirmed dapsone 100 mg tablet 100 mg PO DAILY 12/02/20 06/02/22 dutasteride 0.5 mg capsule 0.5 mg PO DAILY 12/02/20 06/02/22 (Avodart) folic acid 1 mg tablet 1 mg PO DAILY 12/02/20 06/02/22 insulin aspart U-100 100 unit/mL See Rx Instructions .Route .COMPLEX 12/02/20 06/02/22 (3 mL) subcutaneous pen (Novolog FlexPen U-100 Insulin aspart) linagliptin 5 mg tablet (Tradjenta) 5 mg PO QAM 12/02/20 06/03/22 omeprazole 20 mg capsule,delayed 20 mg PO DAILY 12/02/20 06/02/22 release ondansetron HCl 8 mg tablet 8 mg PO Q8H PRN Nausea And Vomiting 12/02/20 06/02/22 psyllium husk 0.4 gram capsule 0.4 g PO DAILY 12/02/20 06/03/22 (Daily Fiber) ruxolitinib 10 mg tablet (Jakafi) 10 mg PO BID 12/02/20 06/02/22 sotalol 80 mg tablet 80 mg PO BID 12/02/20 06/02/22 tramadol 50 mg tablet 50 mg PO BID PRN Pain (Scale Score 12/02/20 06/03/22 4-6) calcium carbonate 400 mg calcium 800 mg PO BID 06/24/21 06/02/22 (1,000 mg) chewable tablet insulin NPH isoph U-100 human 100 5 unit subcut QAM 06/24/21 06/02/22 unit/mL (3 mL) subcutaneous pen (Humulin N NPH U-100 Insulin KwikPen) lorazepam 0.5 mg tablet 0.5 mg PO HS PRN Anxiety 06/24/21 06/02/22 enasidenib 50 mg tablet 50 mg PO .COMPLEX 03/12/22 03/12/22 hydroxyurea 500 mg capsule 500 mg PO .COMPLEX 03/12/22 06/02/22 amlodipine 10 mg tablet 10 mg PO DAILY 06/03/22 06/02/22 apixaban 5 mg tablet (Eliquis) 10 mg PO BID 06/03/22 06/02/22 hydrocodone 5 mg-acetaminophen 325 1 tablet PO Q8H PRN Pain (Scale 06/03/22 06/03/22 mg tablet Score 7-10) loperamide 2 mg capsule 2 mg PO QID PRN Diarrhea 06/03/22 06/03/22 testosterone 10 mg/0.5 1 pump transdermal [facility] 06/03/22 06/03/22 gram/actuation transdermal gel pump <Mohan Kunz, DO - Last Filed: 07/26/22 11:26> Allergies/adverse reactions: Allergies Allergy/AdvReac Type Severity Reaction Status Date / Time iodine Allergy Severe Anaphylaxis Verified 07/26/22 09:02 shrimp Allergy Unknown Itching Verified 07/26/22 09:02 <Mohan Kunz DO - Last Filed: 07/26/22 11:26> Review of Systems Review of Systems: Gen.: Denies fevers or chills Eyes: Denies eye pain or visual change ENT: Reports facial pain Respiratory: Denies shortness of breath or cough CV: Denies chest pain or palpitations GI: Denies abdominal pain nausea, emesis Musculo denies back or extremity pain Neuro: Reports that Skin: Denies rash Except as documented, all other systems reviewed and negative <Mohan Kunz, - Last Filed: 07/26/22 11:26> [facility] Past Medical History Medical History: Medical History (Reviewed
== END 2022-07-26 12:05 | disposition home or self-care (01) ==
PROVIDERS: Emergency Provider Emergency Medicine; PCP Family Medicine
DX: S01.81XA Laceration without foreign body of other part of head, initial encounter (principal); S16.1XXA Strain of muscle, fascia and tendon at neck level, initial encounter; I48.91 Unspecified atrial fibrillation; I10 Essential (primary) hypertension; Z86.73 Personal history of transient ischemic attack (TIA), and cerebral infarction without residual deficits; Z87.891 Personal history of nicotine dependence; Z99.81 Dependence on supplemental oxygen; W01.0XXA Fall on same level from slipping, tripping and stumbling without subsequent striking against object, initial encounter
CPT/HCPCS: 12011; 70450; 71045; 72125; 99284

== ENCOUNTER 2022-11-20 11:34 | Outpatient (CLI) | payer MEDICARE, SELFPAY ==
--- NOTE | ~2022-11-20 | XR_ITS ---
Clinical Indication: Shortness of breath PA and lateral views of the chest: Comparison: 07/26/2022 Findings: The lungs are clear, without evidence of focal consolidation or pleural effusion. Cardiome diastinal silhouette is within normal limits. There is eventration of the left hemidiaphragm. Bones a nd soft tissues are unremarkable. Impression: Clear lungs. Reviewed, dictated and finalized at location M. Impression: Clear lungs.
== END 2022-11-20 11:35 | disposition home or self-care (01) ==
PROVIDERS: PCP Family Medicine; Visit Provider Physician Assistant
DX: R06.02 Shortness of breath (principal); R05.9 Cough, unspecified
CPT/HCPCS: 71046

== ENCOUNTER 2023-01-03 14:34 | Inpatient (IN) | payer MEDICARE, SELFPAY ==
--- NOTE | ~2023-01-03 | XR_ITS ---
EXAMINATION: XR chest 1V portable Exam Date/Time: 01/03/2023 15:40 CDT HISTORY: Dyspnea Comparison: 11/20/2022. RESULT: Lines, tubes, and devices: None. Lungs and pleura: Low volumes with crowding. Diffuse reticular opacities. Patchy left lung and right medial lung groundglass opacities. Subsegmental bibasilar linear opacities. Left costophrenic angle blunting. Cardiomediastinal silhouette: Stable. Other: No acute osseous or upper abdominal finding. IMPRESSION: Pulmonary opacities likely represent pulmonary edema with small left pleural effusion. Bibasilar scar /atelectasis. Infection is not excluded. Reviewed, dictated and finalized at location K. IMPRESSION: Pulmonary opacities likely represent pulmonary edema with small left pleural ef fusion. Bibasilar scar/atelectasis. Infection is not excluded.
--- NOTE | ~2023-01-03 | US_ITS ---
EXAMINATION: US venous doppler [facility] DATE: 01/04/2023 13:24 INDICATION: Lower limb edema. TECHNIQUE: Grayscale ultrasound images without and with compression and Doppler ultrasound images of the bilateral lower extremity veins were obtained. COMPARISON: None. FINDINGS: The visualized portions of right common femoral vein, femoral vein, popliteal vein, peroneal veins, p osterior tibial veins, and greater saphenous vein outflow are patent. There is thrombus in right prof unda femoral vein. The visualized portions of left common femoral vein, profunda femoral vein, femoral vein, and greater saphenous vein outflow are patent. There is thrombus in left femoral, posterior tibial, and peroneal veins. IMPRESSION: 1. Bilateral deep vein thrombosis. Reviewed, dictated and finalized at location A.
--- NOTE | ~2023-01-03 | CT_ITS ---
EXAMINATION: CTA chest PE protocol DATE: 01/03/2023 17:07 INDICATION: Dyspnea TECHNIQUE: Computed tomography angiography (CTA) of the chest was performed with 100 mL Omnipaque-350 intravenous contrast timed to evaluate the pulmonary arteries. Coronal maximum intensity projection 3D-reconstructions were created by the technologist. The dose-length product (DLP) was 729.17 mGy-cm. Automated exposure control and iterative reconstruction technique were employed. COMPARISON: None. FINDINGS: Lung parenchyma and airways: Interlobular septal thickening. Scattered groundglass and consolidative opacities in a gravitational distribution. Bibasilar atelectasis/consolidation. Tracheal and proximal bronchial narrowing.. Pleura: Unremarkable. Thoracic inlet, axillae and chest wall: Unremarkable. Thoracic aorta: Normal. Mediastinum: Normal. Heart and pericardium: Aortic and mitral calcification. Coronary artery calcifications: Absent. Upper abdomen: No significant finding. Bones: No acute osseous finding. Stable multilevel thoracic vertebral body compression fractures. Pulmonary arteries: Study quality: Adequate. No pulmonary emboli detected. IMPRESSION: No CT evidence of acute pulmonary embolus. Moderate pulmonary edema. Dependent pulmonary opacities may represent atelectasis, and/or edema, noting that infection is not e xcluded. Diffuse tracheal and proximal bronchial narrowing. Results reported telephonically to Dr. Chavarria by Dr. Todd at 8:18 PM on 01/03/2023. Reviewed, dictated and finalized at location K. IMPRESSION: No CT evidence of acute pulmonary embolus. Moderate pulmonary edema. Dependent pulmonary opacities may represent atelectasis, and/or edema, noting t hat infection is not excluded. Diffuse tracheal and proximal bronchial narrowing. Results reported telephonically to Dr. Chavarria by Dr. Todd at 8:18 PM on 12/25.
[2023-01-03 14:39] VITALS: BP 104/66; PULSE 92; RESP 13; TEMP 36.6; O2SAT 92
[2023-01-03 14:41] VITALS: O2SAT 91
--- NOTE | 2023-01-03 15:27 | ECG_ITS ---
Measurements Intervals [place] Rate: 91 P: 55 DE: 163 QRS: 37 QRSD: 97 T: 41 QT: 354 QTc: 438 Interpretive Statements SINUS RHYTHM EARLY PRECORDIAL R/S TRANSITION BASELINE ARTIFACT- I, II, III, AVR, AVL, AVF, V1-V2, V5-V6 BORDERLINE ECG COMPARED TO ECG 06/02/2022 14:53:53 NO SIGNIFICANT CHANGES Electronically Signed On 01-03-2023 19:36:52 CDT by Gallo Steiner D.O.
[2023-01-03 15:51] LABS: Hematocrit 34.5 % (42.0-52.0); Hemoglobin 11.2 g/dL (14.0-18.0); Immature Platelet Fraction Pct 15.8 % (0.9-11.2); Mean Corpuscular HGB Conc 32.5 g/dl (32-36); Mean Corpuscular Hemoglobin 31.1 pg (26-34); Mean Corpuscular Volume 95.8 fl (80-100); Mean Platelet Volume 12.8 fl (7.4-10.4); Platelet Count Result 104 k/mm3 (150-375); Red Cell Distribution Width 21.8 % (11.5-14.5); White Blood Count 29.4 K/mm3 (4.5-10.0)
[2023-01-03] MEDS: SODIUM CHLORIDE 0.9% IV 1,000 ML 999 ML IV CONT (15:57)
[2023-01-03 16:01] LABS: Alanine Aminotransferase 26 U/L (6-50); Albumin Level 3.4 g/dL (3.5-5.1); Alkaline Phosphatase 58 U/L (38-126); Anion Gap 5 mmol/L (8-16); Aspartate Amino Transferase 28 U/L (17-59); Blood Urea Nitrogen 31 mg/dL (9-20); Calcium 7.8 mg/dL (8.4-10.2); Carbon Dioxide 28 mmol/L (22-30); Chloride 103 mmol/L (98-107); Estimated CRCL calculation 134 ml/min; Estimated Glomerular Filt Rate > 60; Glucose 159 mg/dL (65-110); Magnesium 2.1 mg/dL (1.6-2.3); Potassium 4.3 mmol/L (3.4-5.0); Sodium 136 mmol/L (137-145)
[2023-01-03 16:02] LABS: Lactic Acid Reflex 1.4 mmol/L (0.7-2.0)
[2023-01-03 16:10] LABS: Eosinophils Absolute Manual 0.58 K/mm3 (0.02-0.5); Eosinophils Percent Manual 2 % (0-4); Lymphocytes Absolute Manual 4.11 K/mm3 (1.1-4.5); Lymphocytes Percent Manual 14 % (18-44); Metamyelocytes Percent 2 %; Monocytes Absolute Manual 6.17 K/mm3 (0.1-0.90); Monocytes Percent Manual 21 % (3-9); Neutrophils Percent Manual 61 % (46-73); Total Cells Counted 100
[2023-01-03 16:11] LABS: Anisocytosis 1+ (NORMAL); Ovalocytes 1+ (NORMAL); Platelet Estimate Decreased (Adequate)
[2023-01-03 16:12] LABS: Atypical Lymphocytes Present; Schistocytes None Seen (NORMAL)
[2023-01-03 17:28] LABS: Appearance Urine Clear (Clear); Bacteria Urine None Seen /hpf; Bilirubin Urine Negative (Negative); Blood Urine Negative (Negative); Color Urine Dark Yellow (Yellow); Glucose Urine UA 2+ mg/dL (Negative); Ketones Urine Trace mg/dL (Negative); Leukocyte Esterase Ur Negative LEU/UL (Negative); Nitrate Urine Negative (Negative); Non Pathogenic Casts 0-2; Protein Urine 2+ mg/dL (Negative); RBC Urine 0-2 /hpf (0-2); Specific Grav Ur 1.031 (1.001-1.035); Squamous Epithelial Cell Urine Occasional /hpf (Few); WBC Urine 0-5 /hpf
[2023-01-03 17:29] LABS: Add Urine Microscopic? YES
[2023-01-03 17:45] VITALS: BP 104/52; PULSE 76; RESP 12; O2SAT 91
--- NOTE | 2023-01-03 17:45 | ED.SOB ---
HPI - SOB/Dyspnea General Chief Complaint: Shortness of Breath/Dyspnea Stated Complaint: SOB Time Seen by Provider: 01/03/23 15:06 History of Present Illness HPI Narrative: This is a 77-year-old male, with past history of myelodysplastic syndrome, stroke and coronary artery disease, presents emergency department with 2 days of cough productive of green sputum and shortness of breath. The patient and his , note over the past week, the patient has become progressively more weak than usual. He has had cough for the past 2 days productive of green sputum. The patient's notes that his care is becoming beyond her ability to safely care for him. Related Data Home Medications Medication Instructions Recorded Confirmed dapsone 100 mg tablet 100 mg PO DAILY 12/02/20 08/27/22 dutasteride 0.5 mg capsule 0.5 mg PO DAILY 12/02/20 08/27/22 (Avodart) folic acid 1 mg tablet 1 mg PO DAILY 12/02/20 08/27/22 insulin aspart U-100 100 unit/mL See Rx Instructions .Route .COMPLEX 12/02/20 08/27/22 (3 mL) subcutaneous pen (Novolog FlexPen U-100 Insulin aspart) linagliptin 5 mg tablet (Tradjenta) 5 mg PO QAM 12/02/20 08/27/22 omeprazole 20 mg capsule,delayed 20 mg PO DAILY 12/02/20 08/27/22 release ondansetron HCl 8 mg tablet 8 mg PO Q8H PRN Nausea And Vomiting 12/02/20 08/27/22 psyllium husk 0.4 gram capsule 0.4 g PO DAILY 12/02/20 08/27/22 (Daily Fiber) ruxolitinib 10 mg tablet (Jakafi) 10 mg PO BID 12/02/20 08/27/22 sotalol 80 mg tablet 80 mg PO BID 12/02/20 08/27/22 tramadol 50 mg tablet 50 mg PO BID PRN Pain (Scale Score 12/02/20 08/27/22 4-6) calcium carbonate 400 mg calcium 800 mg PO BID 06/24/21 08/27/22 (1,000 mg) chewable tablet insulin NPH isoph U-100 human 100 5 unit subcut QAM 06/24/21 08/27/22 unit/mL (3 mL) subcutaneous pen (Humulin N NPH U-100 Insulin KwikPen) lorazepam 0.5 mg tablet 0.5 mg PO HS PRN Anxiety 06/24/21 08/27/22 enasidenib 50 mg tablet 50 mg PO .COMPLEX 03/12/22 08/27/22 hydroxyurea 500 mg capsule 500 mg PO .COMPLEX 03/12/22 08/27/22 loperamide 2 mg capsule 2 mg PO QID PRN Diarrhea 06/03/22 08/27/22 testosterone 10 mg/0.5 1 pump transdermal QAM 06/03/22 08/27/22 gram/actuation transdermal gel pump Allergies Allergy/AdvReac Type Severity Reaction Status Date / Time iodine Allergy Severe Anaphylaxis Verified 08/27/22 13:11 shrimp Allergy Unknown Itching Verified 08/27/22 13:11 Review of Systems Review of Systems: CONSTITUTIONAL: Denies fever, chills, or sweats.. CARDIOVASCULAR: Denies chest pain, palpitations, or edema. RESPIRATORY: Cough productive of green sputum, dyspnea GASTROINTESTINAL: Denies abdominal pain, nausea, vomiting, or diarrhea. GENITOURINARY: Denies dysuria or hematuria. SKIN: Painful lesions on the left ankle and the back denies itching. MUSCULOSKELETAL: Denies back pain, joint pain, or myalgia. NEUROLOGIC: Denies headache, numbness, dizziness, or weakness. PSYCHIATRIC: Denies anxiety or depression. [facility]LY [facility] Past Medical History Medical History A-fib CVA (cerebral vascular accident) Enlarged prostate Fever History of CVA (cerebrovascular accident) HTN (hypertension) Lumbar compression fracture MDS (myelodysplastic syndrome) Rheumatoid arthritis SOB (shortness of breath) Steroid-induced diabetes mellitus Surgical History Surgical History H/O colonoscopy with polypectomy History of cardiac radiofrequency ablation History of surgical amputation of finger of left hand Family History Family History Father Family history of coronary artery disease Family history of cardiovascular disease Mother Hypertension A-fib Sibling Diabetes 1.5, managed as type 2 Kidney failure Sibling Hypertension Other Family history of arthritis Social History Social History (Reviewed 01/03/23
[2023-01-03] MEDS: CEFEPIME 1 GM/NS 50 ML 1 GM/50 ML BAG IVPB (19:09)
--- NOTE | 2023-01-03 19:16 | PCCCNOTE ---
met with patient and bedside, patient is alert and oriented x 4, however patient has been bedbound for the past 2 weeks. patients states that patients PCP, oncologist, and biomedical engineer are all recommending hospice however patient is not agreeable to consult at this time. CC spoke in depth with whom states that she is no longer able to care soley for patient at home. she would like hospice to be arranged. CC then spoke with MD whom stated that patient will be admitted for PNA and IV ABX. CC informed and patient that he would be admitted for abx and if at any time they wanted a hospice referral the CC on the floor would be able to help assist with that. CCwill continue to follow for any other needs that may arise.
[2023-01-03 19:24] VITALS: BP 104/65; PULSE 80; RESP 14; O2SAT 91
--- NOTE | 2023-01-03 20:23 | PM.IMHP ---
H&P: HPI History of Present Illness Date/Time: 01/03/23 19:15 Chief Complaint: Shortness of breath. Narrative: This is a 77-year-old ?male with history of stroke, paroxysmal atrial fibrillation, hypertension, and myelodysplastic syndrome who presented to the emergency department via EMS from home for evaluation of shortness of breath. The patient provides the following history and his provides additional information with the patient's permission. Over the past month or so he has become increasingly weak and more reliant on his family members for care. It is to the point where his and daughter have to assist him fully to stand up to get to the commode.According to his , several of the patient's doctors have recommended hospice however he has been hesitant. In any event, he has developed a cough productive of clear but occasionally green colored sputum over the last several days. He is feeling short of breath and has frequent rattling in his chest which is unusual for him. He has been taking Mucinex which does not seem to help. He has increasing lower extremity edema from baseline as well. At home he is on 2 L nasal cannula and that has been bumped up to 4 L in order to maintain his SpO2 in the mid 90s. Surprisingly his appetite has been good and he denies nausea, vomiting, and diarrhea. He denies fever, sinus congestion, sore throat, chest pain, pleuritic pain, sensations of racing heart, orthopnea, and paroxysmal nocturnal dyspnea. He denies sick contacts. On arrival to the emergency department he was afebrile with stable blood pressures. Labs were significant for a WBC count of 29.4, hemoglobin 11.2, platelet 104, lactic acid 1.4, troponin 0.020, glucose 216, BUN 31, creatinine 0.40. CT of the chest was negative for pulmonary embolism and showed moderate pulmonary edema and dependent opacities which may be atelectasis or edema however infection not excluded. Diffuse tracheal and proximal bronchial narrowing were also noted. He was started on antibiotics and is being admitted in this setting. Review of Systems Review of Systems: Twelve systems were reviewed and are negative except for as per HPI. [facility] Past Medical History Medical History A-fib CVA (cerebral vascular accident) Enlarged prostate Fever History of CVA (cerebrovascular accident) HTN (hypertension) Lumbar compression fracture MDS (myelodysplastic syndrome) Myelodysplastic syndrome Rheumatoid arthritis SOB (shortness of breath) Steroid-induced diabetes mellitus Surgical History Surgical History H/O colonoscopy with polypectomy History of cardiac radiofrequency ablation History of surgical amputation of finger of left hand Family History Family History Father Family history of coronary artery disease Family history of cardiovascular disease Mother Hypertension A-fib Sibling Diabetes 1.5, managed as type 2 Kidney failure Sibling Hypertension Other Family history of arthritis Social History Social History (Updated 01/09/23 @ 15:26 by Ilda Torres PA-C) Social History: The patient lives with his in [place]. He is a patient of Dr. Pa Nelson. He designates his as his surrogate decision maker and he wishes to be a full code. He drinks a glass of wine each evening. He is a retired [employer] from a [employer]. Smoking packs per day: 3 Smoking cigarettes per day: 60.0 Years smoked: 40 Smoking pack-years: 120.00 Smoking status: Former smoker Second hand tobacco smoke exposure: Yes Alcohol intake: never Drinks per week: 7 Alcohol use details: He typically drinks a glass a wine each night. Substance use: never Substance use type: does not use Lack of Transportation: No Lack of Food: Never True Current Housing: [facility]
[2023-01-03] MEDS: AZITHROMYCIN 500 MG/NS 250 ML 500 MG/250 ML BAG 250 MG IVPB (20:38)
[2023-01-03 20:46] LABS: Glucose Point of Care 216 mg/dl (65-105)
[2023-01-03 20:48] VITALS: BP 102/61; PULSE 79; RESP 22; O2SAT 91
--- NOTE | 2023-01-03 23:07 | ADMGEN ---
This patient, Nestor Chauhan Jr., was admitted to [facility] Room 310-01. Patient/family oriented to hospital policies and general routines including ID bracelet, bed and alarms, visiting hours, pain management, procedures, bathroom and other care routines, personal items, smoking policy, room service/diet, and visiting hours. Information on how to activate the Rapid Response Team has been discussed. Patient/Family are encouraged to report perceived risks to care and to ask questions if they do not understand what they are told or what they should do.
[2023-01-03 23:10] VITALS: BP 101/50; PULSE 77; RESP 20; TEMP 36.4; O2SAT 96; BMI 24.5
[2023-01-03 23:20] VITALS: BMI 24.5
[2023-01-04] VITALS (20 sets, daily range): BP systolic 99–111; BP diastolic 57–84; PULSE 76–95; RESP 17–22; TEMP 36.2–36.6; O2SAT 90–98; BMI 24.6
--- NOTE | 2023-01-04 00:28 | ECHO_ITS ---
Patient Info Name: Nestor Chauhan Age: 77 years : 1945 Gender: Male Ht: 70 in Wt: 171 lbs BSA: 1.96 m2 HR: 82 bpm BP: 99 / 61 mmHg Heart Rhythm: Sinus Rhythm Technical Quality: Fair Exam Date: 01/04/2023 9:37 AM Exam Location: [facility] Pulmonary Exam Room: 310 Patient Status: Inpatient Admit Date: 01/04/2023 Staff Ordering Physician: Ilda Torres PA-C [employer] Operator: Cyndee Yañez RDCS Attending Provider: Jose Minor MD Referring Physician: Melissa CAMARILLO; Exam Type: CA echo doppler color flow Study Info Indications - puilm edema Complete two-dimensional, color flow and Doppler transthoracic echocardiogram is performed. Summary 1. Complete two-dimensional, color flow and Doppler transthoracic echocardiogram is performed. 2. Left ventricular hypertrophy with well-preserved systolic function and grade 1 diastolic noncompliance. 3. Sclerotic but not stenotic aortic valve. 4. Small amount of mitral and tricuspid insufficiency. 5. TR velocities indicate pulmonary artery pressures are likely to be 54 mmHg. 6. Compared with echocardiogram from 2019 there is no substantial difference. Left Ventricle Left ventricular chamber dimension is normal. Left ventricular systolic function is normal, estimated at 65-70%. The left ventricular diastolic function is grade I diastolic dysfunction. Right Ventricle Right ventricular chamber dimension is normal. Left Atria Left atrial chamber dimension is mildly enlarged. Right Atria Right atrial chamber dimension is normal. Aortic Valve The aortic valve is trileaflet. There is mild aortic valve sclerosis. There is no aortic valve stenosis. Pulmonic Valve The pulmonic valve is normal. There is trace pulmonic regurgitation. Mitral Valve The mitral valve has normal leaflets. There is mild mitral valve regurgitation. Tricuspid Valve The tricuspid valve leaflets are normal. There is mild tricuspid valve regurgitation. Moderate pulmonary hypertension, estimated pulmonary arterial systolic pressure is 56 mmHg. Pericardium/Pleural The pericardium appears normal. Aorta The aortic root size at the sinus of Valsalva is normal. Left Ventricular Outflow Tract Name Value Normal LVOT 2D LVOT Diameter 2.1 cm LVOT Doppler LVOT Peak Gradient 5 mmHg LVOT Mean Gradient 3 mmHg LVOT VTI 21 cm LVOT VTI/AV VTI Ratio 0.9 LVOT Stroke Volume 71 ml LVOT CO 16.1 l/min LVOT CI 8.2 l/min/m2 Pulmonic Valve Name Value Normal RVOT Doppler RVOT Peak Gradient 2 mmHg PV Doppler PV Peak Gradient 3 mmHg Mitral Valve
[2023-01-04] MEDS: FUROSEMIDE INJ 40 MG/4 ML VIAL 20 MG IV PUSH (00:50)
[2023-01-04] MEDS: DOXYCYCLINE HYCLATE 100 MG TABLET PO ×2 (00:50→13:47)
[2023-01-04] MEDS: AMITRIPTYLINE HCL 25 MG TABLET PO ×2 (00:51→21:26)
[2023-01-04] MEDS: PANTOPRAZOLE 40 MG TABLET PO ×2 (01:20→21:26)
[2023-01-04] MEDS: DUTASTERIDE 0.5 MG CAPSULE PO ×2 (01:20→21:26)
[2023-01-04] MEDS: MIRTAZAPINE 15 MG TABLET PO ×2 (01:20→21:26)
[2023-01-04 06:52] LABS: Hematocrit 34.2 % (42.0-52.0); Hemoglobin 10.7 g/dL (14.0-18.0); Immature Platelet Fraction Pct 14.7 % (0.9-11.2); Mean Corpuscular HGB Conc 31.3 g/dl (32-36); Mean Corpuscular Hemoglobin 30.8 pg (26-34); Mean Corpuscular Volume 98.6 fl (80-100); Mean Platelet Volume 12.7 fl (7.4-10.4); Platelet Count Result 89 k/mm3 (150-375); Red Blood Count 3.47 M/mm3 (4.6-6.20); Red Cell Distribution Width 21.8 % (11.5-14.5); White Blood Count 16.7 K/mm3 (4.5-10.0)
[2023-01-04 07:03] LABS: Anion Gap 5 mmol/L (8-16); Blood Urea Nitrogen 25 mg/dL (9-20); Calcium 7.4 mg/dL (8.4-10.2); Carbon Dioxide 27 mmol/L (22-30); Chloride 104 mmol/L (98-107); Estimated CRCL calculation 110 ml/min; Estimated Glomerular Filt Rate > 60; Glucose 142 mg/dL (65-110); Potassium 3.7 mmol/L (3.4-5.0); Sodium 136 mmol/L (137-145)
[2023-01-04 07:18] LABS: Band Neutrophils Percent 5 % (0-6); Lymphocytes Absolute Manual 2.83 K/mm3 (1.1-4.5); Lymphocytes Percent Manual 17 % (18-44); Metamyelocytes Percent 2 %; Monocytes Percent Manual 12 % (3-9); Neutrophils Absolute Manual 11.52 K/mm3 (1.3-6.7); Neutrophils Percent Manual 64 % (46-73); Total Cells Counted 100
[2023-01-04 07:19] LABS: Anisocytosis 2+ (NORMAL); Hypochromasia 1+ (NORMAL); Nucleated Red Blood Cells 4 %; Platelet Estimate Decreased (Adequate); Schistocytes None Seen (NORMAL)
[2023-01-04 07:48] LABS: Glucose Point of Care 155 mg/dl (65-105)
--- NOTE | 2023-01-04 08:22 | PM.IMPN ---
Progress Note: A&P Assessment and Plan (1) Pneumonia: Qualifiers: Laterality: unspecified laterality Lung location: unspecified part of lung Pneumonia type: due to unspecified organism Qualified Code(s): J18.9 - Pneumonia, unspecified organism Code(s): J18.9 - Pneumonia, unspecified organism Status: Acute Assessment and Plan: CTA chest with moderate pulmonary edema and dependent pulmonary opacities may represent atelectasis, and/or edema. Productive cough at home with green sputum Increased oxygen requirement of 4 L NC Spo2 90%. Baseline o2 is 2-3 L NC. Blood cultures pending. Sputum culture ordered. Started on Rocephin and doxycycline (2) Pulmonary edema: Code(s): J81.1 - Chronic pulmonary edema Status: Acute Assessment and Plan: No history of heart failure CT chest with moderate pulmonary edema and BLE edema S/P IVP lasix Requiring oxygen Echo ordered Venous Doppler-+ bilateral DVT. ECHO: Summary ? 1. Complete two-dimensional, color flow and Doppler transthoracic echocardiogram is performed. ? 2. Left ventricular hypertrophy with well-preserved systolic function and grade 1 diastolic noncompliance. ? 3. Sclerotic but not stenotic aortic valve. ? 4. Small amount of mitral and tricuspid insufficiency. ? 5. TR velocities indicate pulmonary artery pressures are likely to be 54 mmHg. ? 6. Compared with echocardiogram from 2019 there is no substantial difference. (3) Myelodysplastic syndrome: Code(s): D46.9 - Myelodysplastic syndrome, unspecified Status: Acute Assessment and Plan: Currently on treatment with Ruxolitinib 10 mg PO BID and Hydroxyurea 500 mg Po Daily and Enasidenib 50 mg PO MWF and Dexamethasone 2 mg PO BID Pancytopenia related to this. (4) Chronic respiratory failure with hypoxia: Code(s): J96.11 - Chronic respiratory failure with hypoxia Status: Acute Assessment and Plan: see 1 & 2 (5) DVT (deep venous thrombosis): Code(s): I82.409 - Acute embolism and thrombosis of unspecified deep veins of unspecified lower extremity Status: Acute Assessment and Plan: + BLE DVT PE was ruled out with CTA Thrombocytopenia due to myelodysplastic syndrome makes it difficult to anticoagulate Started on heparin gtt Consulted surgery to discuss IVC filter placement. Platelets 89,000 today. Monitor for bleeding. PTT Q 6 per protocol and daily CBC Time Spent With Patient Time: Feeding:DM diet Analgesia:tylenol, norco, tramadol Thromboembolic prophylaxis: Hepain gtt Ulcer prophylaxis: PPI Glycemic control: NPH insulin, Januvia Bowel regimen: miralax and colace Lines: PIV Antibiotics: Rocephin and doxycycline Subjective Date/time seen: 01/04/23 08:22 Interval history: HPI obtained from chart, This is a 77-year-old ?male with history of stroke, paroxysmal atrial fibrillation, hypertension, and myelodysplastic syndrome who presented to the emergency department via EMS from home for evaluation of shortness of breath. The patient provides the following history and his provides additional information with the patient's permission. Over the past month or so he has become increasingly weak and more reliant on his family members for care. It is to the point where his and daughter have to assist him Couch to stand up to get to the commode due to significant weakness. According to his , several of the patient's doctors have recommended hospice however he has been hesitant. In any event, he has developed a cough productive of clear but occasionally green colored sputum over the last several days. He is feeling short of breath and has frequent rattling in his chest which is unusual for him. He has been taking Mucinex which does not seem to help. He has increasing lower extremity edema from baseline as well. At home he is on 2 L nasal cannula and that has been bumped up to 4 L in order to mainta
[2023-01-04] MEDS: DEXAMETHASONE 2 MG TABLET PO ×2 (09:01→16:16)
[2023-01-04] MEDS: ASPIRIN 81 MG ENTERIC TABLET PO (09:02)
[2023-01-04] MEDS: allopurinoL 100 MG TABLET PO (09:02)
[2023-01-04] MEDS: CALCIUM CARBONATE (OSCAL) 500 MG TABLET PO ×2 (09:02→16:16)
[2023-01-04] MEDS: SOTALOL HCL 80 MG TABLET PO ×2 (09:02→21:27)
[2023-01-04] MEDS: HYDROXYUREA (*CHEMO) 500 MG CAPSULE PO (09:03)
[2023-01-04] MEDS: INSULIN HUMAN NPH (*BKC) 100 UNITS/ML SUB-Q (09:03)
[2023-01-04] MEDS: valACYclovir HCL 500 MG TABLET PO (09:03)
[2023-01-04 11:43] LABS: Glucose Point of Care 177 mg/dl (65-105)
[2023-01-04] MEDS: FUROSEMIDE INJ 40 MG/4 ML VIAL IV PUSH (12:47)
[2023-01-04 16:04] LABS: Hematocrit 35.9 % (42.0-52.0); Hemoglobin 11.2 g/dL (14.0-18.0); Immature Platelet Fraction Pct 16.2 % (0.9-11.2); Mean Corpuscular HGB Conc 31.2 g/dl (32-36); Mean Corpuscular Hemoglobin 30.8 pg (26-34); Mean Corpuscular Volume 98.6 fl (80-100); Platelet Count Result 98 k/mm3 (150-375); Red Blood Count 3.64 M/mm3 (4.6-6.20); Red Cell Distribution Width 21.6 % (11.5-14.5); White Blood Count 15.9 K/mm3 (4.5-10.0)
[2023-01-04] MEDS: HEPARIN SOD/D5W 100 UNITS/ML 25,000 UNITS/250 ML BAG 14 UNITS IV CONT (16:12)
[2023-01-04 16:17] LABS: INR 1.1
[2023-01-04 16:18] LABS: Partial Thromboplastin Time 39.4 SECONDS (22.3-36.8)
[2023-01-04 16:41] LABS: Eosinophils Absolute Manual 0.47 K/mm3 (0.02-0.5); Eosinophils Percent Manual 3 % (0-4); Lymphocytes Absolute Manual 1.27 K/mm3 (1.1-4.5); Lymphocytes Percent Manual 8 % (18-44); Monocytes Absolute Manual 3.33 K/mm3 (0.1-0.90); Monocytes Percent Manual 21 % (3-9); Neutrophils Percent Manual 66 % (46-73); Total Cells Counted 100
[2023-01-04 16:42] LABS: Hypersegmented Neutrophils Present; Metamyelocytes Percent 2 %; Nucleated Red Blood Cells 3 %; Platelet Estimate Decreased (Adequate)
[2023-01-04 16:43] LABS: Anisocytosis 1+ (NORMAL); Ovalocytes 1+ (NORMAL)
[2023-01-04 16:44] LABS: Atypical Lymphocytes Present; Schistocytes None Seen (NORMAL)
[2023-01-04 16:57] LABS: Glucose Point of Care 307 mg/dl (65-105)
[2023-01-04] MEDS: ALBUTEROL SULFATE NEB 2.5 MG/3 ML INH INHALATION ×2 (17:13→21:04)
--- NOTE | 2023-01-04 17:26 | PHAR ---
PT'S HOME MED JAKAFI (RUXOLITINIB) 10 MG TABS VERIFIED BY PHARMACY
[2023-01-04] MEDS: INSULIN ASPART (*BKC) 100 UNITS/ML SUB-Q (18:24)
[2023-01-04] MEDS: HYDROcodone/acetaminophen (*CRX) 5-325 MG TABLET 1 TAB PO (18:24)
[2023-01-04] MEDS: guaiFENesin 12 HR 600 MG TABCR PO (21:26)
[2023-01-04] MEDS: DOCUSATE SODIUM 100 MG CAPSULE PO (21:26)
[2023-01-04 23:53] LABS: Partial Thromboplastin Time 176.6 SECONDS (22.3-36.8)
[2023-01-05] VITALS (23 sets, daily range): BP systolic 95–101; BP diastolic 54–57; PULSE 74–105; RESP 12–20; TEMP 35.7–36.8; O2SAT 92–97
--- NOTE | 2023-01-05 | ECG_ITS ---
Measurements Intervals [place] Rate: 108 P: 48 CO: 166 QRS: 43 QRSD: 95 T: 55 QT: 355 QTc: 476 Interpretive Statements SINUS TACHYCARDIA VENTRICULAR PREMATURE COMPLEXES BASELINE ARTIFACT- I, II, AVR, AVL, AVF, V1 ABNORMAL ECG COMPARED TO ECG 01/03/2023 14:36:[address] NOW PRESENT ST (T WAVE) DEVIATION NOW PRESENT Electronically Signed On 01-05-2023 6:46:59 CDT by Gallo Steiner D.O.
[2023-01-05] MEDS: ALBUTEROL SULFATE NEB 2.5 MG/3 ML INH INHALATION ×5 (00:22→21:10)
[2023-01-05] MEDS: DOXYCYCLINE HYCLATE 100 MG TABLET PO ×2 (02:00→13:10)
[2023-01-05] MEDS: INSULIN ASPART (*BKC) 100 UNITS/ML SUB-Q ×6 (02:09→21:53)
[2023-01-05 03:26] LABS: Glucose Point of Care 249 mg/dl (65-105)
[2023-01-05 03:26] LABS: Glucose Point of Care 304 mg/dl (65-105)
[2023-01-05 06:01] LABS: Glucose Point of Care 322 mg/dl (65-105)
[2023-01-05 07:49] LABS: Hematocrit 32.2 % (42.0-52.0); Hemoglobin 10.2 g/dL (14.0-18.0); Immature Platelet Fraction Pct 16.6 % (0.9-11.2); Mean Corpuscular HGB Conc 31.7 g/dl (32-36); Mean Corpuscular Hemoglobin 31.1 pg (26-34); Mean Corpuscular Volume 98.2 fl (80-100); Mean Platelet Volume 13.6 fl (7.4-10.4); Platelet Count Result 84 k/mm3 (150-375); Red Blood Count 3.28 M/mm3 (4.6-6.20); Red Cell Distribution Width 21.2 % (11.5-14.5)
[2023-01-05 07:58] LABS: Alanine Aminotransferase 24 U/L (6-50); Albumin Level 3.3 g/dL (3.5-5.1); Alkaline Phosphatase 68 U/L (38-126); Anion Gap 6 mmol/L (8-16); Aspartate Amino Transferase 21 U/L (17-59); Bilirubin,Total 0.9 mg/dL (0.2-1.3); Blood Urea Nitrogen 29 mg/dL (9-20); Calcium 7.8 mg/dL (8.4-10.2); Carbon Dioxide 30 mmol/L (22-30); Chloride 100 mmol/L (98-107); Estimated CRCL calculation 93 ml/min; Estimated Glomerular Filt Rate > 60; Glucose 297 mg/dL (65-110); Magnesium 1.9 mg/dL (1.6-2.3); Potassium 4.2 mmol/L (3.4-5.0); Sodium 136 mmol/L (137-145)
[2023-01-05 07:59] LABS: Glucose Point of Care 278 mg/dl (65-105)
[2023-01-05 08:07] LABS: Band Neutrophils Percent 3 % (0-6); Eosinophils Absolute Manual 0.54 K/mm3 (0.02-0.5); Eosinophils Percent Manual 3 % (0-4); Lymphocytes Absolute Manual 2.52 K/mm3 (1.1-4.5); Monocytes Absolute Manual 1.26 K/mm3 (0.1-0.90); Monocytes Percent Manual 7 % (3-9); Neutrophils Absolute Manual 13.68 K/mm3 (1.3-6.7); Neutrophils Percent Manual 73 % (46-73); Nucleated Red Blood Cells 1 %; Platelet Estimate Decreased (Adequate); Total Cells Counted 100
[2023-01-05 08:08] LABS: Microcytosis 2+ (NORMAL); Schistocytes None Seen (NORMAL); Stomatocytes 1+ (NORMAL)
--- NOTE | 2023-01-05 08:29 | PM.IMPN ---
Progress Note: A&P Assessment and Plan (1) Pneumonia: Qualifiers: Laterality: unspecified laterality Lung location: unspecified part of lung Pneumonia type: due to unspecified organism Qualified Code(s): J18.9 - Pneumonia, unspecified organism Code(s): J18.9 - Pneumonia, unspecified organism Status: Acute Assessment and Plan: CTA chest with moderate pulmonary edema and dependent pulmonary opacities may represent atelectasis, and/or edema. Productive cough at home with green sputum SOB and cough is slowly improving Increased oxygen requirement of 4 L NC Spo2 90%. Baseline o2 is 2-3 L NC. Blood cultures NGTD. Sputum culture ordered. Started on Rocephin and doxycycline (2) Pulmonary edema: Code(s): J81.1 - Chronic pulmonary edema Status: Acute Assessment and Plan: No history of heart failure CT chest with moderate pulmonary edema and BLE edema S/P IVP lasix Requiring oxygen Echo ordered Venous Doppler-+ bilateral DVT. ECHO: Summary ? 1. Complete two-dimensional, color flow and Doppler transthoracic echocardiogram is performed. ? 2. Left ventricular hypertrophy with well-preserved systolic function and grade 1 diastolic noncompliance. ? 3. Sclerotic but not stenotic aortic valve. ? 4. Small amount of mitral and tricuspid insufficiency. ? 5. TR velocities indicate pulmonary artery pressures are likely to be 54 mmHg. ? 6. Compared with echocardiogram from 2019 there is no substantial difference. (3) Myelodysplastic syndrome: Code(s): D46.9 - Myelodysplastic syndrome, unspecified Status: Acute Assessment and Plan: Currently on treatment with Ruxolitinib 10 mg PO BID and Hydroxyurea 500 mg Po Daily and Enasidenib 50 mg PO MWF and Dexamethasone 2 mg PO BID Pancytopenia related to this. (4) Chronic respiratory failure with hypoxia: Code(s): J96.11 - Chronic respiratory failure with hypoxia Status: Acute Assessment and Plan: see 1 & 2 (5) DVT (deep venous thrombosis): Code(s): I82.409 - Acute embolism and thrombosis of unspecified deep veins of unspecified lower extremity Status: Acute Assessment and Plan: + BLE DVT PE was ruled out with CTA Thrombocytopenia due to myelodysplastic syndrome makes it difficult to anticoagulate Started on heparin gtt Consulted surgery to discuss IVC filter placement. Platelets 89,000 today. Monitor for bleeding. PTT Q 6 per protocol and daily CBC Surgery is recommending trailing DOAC first as his platelets are 89,000 and he is not bleeding. Patient and are okay with this plan. Should he develop active bleeding or platelets drop to 50,000 then reconsider surgery. Stopping heparin gtt and starting Eliquis today. Patient and family are also interested in hospice and assistance with arrangements. They would prefer hospice at home. 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 Blood glucose has remained in the high 200's-low 300's. Now 467. Stopping home regimen and adding Lantus 10 units daily with high dose slide. Plan Eliquis for DVT Hospice resources have been provided Continue IV antibiotics for pneumonia Subjective Date/time seen: 01/05/23 08:29 Interval history: HPI obtained from chart, This is a 77-year-old ?male with history of stroke, paroxysmal atrial fibrillation, hypertension, and myelodysplastic syndrome who presented to the emergency department via EMS from home for evaluation of shortness of breath. The patient provides the following history and his provides additional information with the patient's permission. Over the past mon
[2023-01-05 08:57] LABS: Partial Thromboplastin Time > 200.0 SECONDS (22.3-36.8)
[2023-01-05] MEDS: guaiFENesin 12 HR 600 MG TABCR PO (09:12)
[2023-01-05] MEDS: SOTALOL HCL 80 MG TABLET PO (09:12)
[2023-01-05] MEDS: valACYclovir HCL 500 MG TABLET PO (09:13)
[2023-01-05] MEDS: ASPIRIN 81 MG ENTERIC TABLET PO (09:13)
[2023-01-05] MEDS: allopurinoL 100 MG TABLET PO (09:13)
[2023-01-05] MEDS: HYDROXYUREA (*CHEMO) 500 MG CAPSULE PO (09:13)
[2023-01-05] MEDS: CALCIUM CARBONATE (OSCAL) 500 MG TABLET PO ×2 (09:13→17:19)
[2023-01-05] MEDS: DOCUSATE SODIUM 100 MG CAPSULE PO ×2 (09:13→21:51)
[2023-01-05] MEDS: DEXAMETHASONE 2 MG TABLET PO ×2 (09:13→17:19)
[2023-01-05] MEDS: polyethylene glycoL 3350 17 GM POWD.PACK PO (09:15)
[2023-01-05] MEDS: INSULIN GLARGINE (*BKC) 100 UNITS/ML 10 UNITS SUB-Q (10:27)
[2023-01-05 11:31] LABS: Glucose Point of Care 456 mg/dl (65-105)
--- NOTE | 2023-01-05 15:34 | PM.CNGS ---
Assessment and Plan Assessment and plan (1) DVT (deep venous thrombosis): Code(s): I82.409 - Acute embolism and thrombosis of unspecified deep veins of unspecified lower extremity Status: Acute Assessment and Plan: Patient found to have bilateral DVTs on this admission. We have been consulted to evaluate for possible IVC filter placement. There is no definitive contraindication for anticoagulation at this time. He was previously on Eliquis and taken off due to fall risk in the past, but he is no longer ambulatory. The patient does have thrombocytopenia with platelets at 84,000 today, but anticoagulation is typically contraindicated with severe thrombocytopenia, or platelets less than 50,000. We would recommend to continue with medical treatment of the DVTs and discussed this with the Hospitalist. We could reconsider IVC filter placement if his thrombocytopenia worsens, he has complications or failure of anticoagulation, or if there is propagation/progression of DVT during treatment. Will sign off at this point. Please call if there are any future surgical questions or concerns. (2) Thrombocytopenia: Code(s): D69.6 - Thrombocytopenia, unspecified Status: Acute (3) Myelodysplastic syndrome: Code(s): D46.9 - Myelodysplastic syndrome, unspecified Status: Acute (4) Pulmonary edema: Code(s): J81.1 - Chronic pulmonary edema Status: Acute (5) Pneumonia: Qualifiers: Laterality: unspecified laterality Lung location: unspecified part of lung Pneumonia type: due to unspecified organism Qualified Code(s): J18.9 - Pneumonia, unspecified organism Code(s): J18.9 - Pneumonia, unspecified organism Status: Acute Plan I have discussed the patient's case and plan of care with Dr. Perez. History of Present Illness Consult details Consult date: 01/05/23 Reason for consult: other (Possible IVC filter placement) Requesting physician: Zo Rosario APRN Narrative: This is a 77-year-old man with multiple medical problems, who came into the ER for evaluation of shortness of breath. He was admitted and treated for pneumonia and pulmonary edema. He was found to have lower extremity edema and venous Dopplers were ordered, which showed bilateral DVTs. The patient has myelodysplastic syndrome with pancytopenia. His platelets are at 84,000 today. There was concern by the hospitalist of anticoagulating the patient due to his thrombocytopenia. Our service was consulted for possible IVC filter placement. Review of Systems Review of Systems: All systems reviewed & are unremarkable except as noted in HPI and below PMFSH Past Medical History Medical History A-fib CVA (cerebral vascular accident) Enlarged prostate Fever History of CVA (cerebrovascular accident) HTN (hypertension) Lumbar compression fracture MDS (myelodysplastic syndrome) Myelodysplastic syndrome Rheumatoid arthritis SOB (shortness of breath) Steroid-induced diabetes mellitus Surgical History Surgical History H/O colonoscopy with polypectomy History of cardiac radiofrequency ablation History of surgical amputation of finger of left hand Family History Family History Father Family history of coronary artery disease Family history of cardiovascular disease Mother Hypertension A-fib Sibling Diabetes 1.5, managed as type 2 Kidney failure Sibling Hypertension Other Family history of arthritis Social History Social History Social History: The patient lives with his in [place]. He is a patient of Dr. Pa Nelson. He designates his as his surrogate decision maker and he wishes to be a full code. He drinks a glass of wine each evening. 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
[2023-01-05 16:40] LABS: Glucose Point of Care 478 mg/dl (65-105)
[2023-01-05] MEDS: APIXABAN 5 MG TABLET 10 MG PO (17:19)
--- NOTE | 2023-01-05 19:58 | PDONCCN ---
HPI - Date of Consult Date/Time: 01/05/23 19:58 Requesting Physician: Jose Minor MD Primary Care Provider: Pa Nelson MD - Consult Narrative Reason for consult: Leukocytosis, anemia and thrombocytopenia Narrative: Nestor Chauhan Jr. is a 77 year old male with history of myelodysplastic syndrome under treatment with oncologist at [facility] along with history of atrial fibrillation, hypertension and stroke came into the hospital with shortness of breath. He was complaining of bilateral lower extremity edema and discomfort. According to the chart review patient is currently on hydroxyurea, Enasdenob and Jakafi. According to patient has been on the treatment for last 1 and half years duration but he is a poor historian. Doppler study showed bilateral lower extremity DVT. CTA chest showed no evidence of PE. Labs showed platelet count of [id number] now dropped [place] 84,[place] [address] and hemoglobin was 10.2. Surgery service was consulted for IVC filter placement due to thrombocytopenia. Patient was started on Eliquis. According to patient he was on Eliquis due to atrial fibrillation but was discontinued by the oncologist previously. He denies any bleeding. Review of Systems - Review of Systems All systems reviewed & are unremarkable except as noted in [facility] and [facility] Medical History: Medical History (Last Reviewed 01/05/23 @ 15:35 by BENNETT Newton) A-fib CVA (cerebral vascular accident) Enlarged prostate Fever History of CVA (cerebrovascular accident) HTN (hypertension) Lumbar compression fracture MDS (myelodysplastic syndrome) Myelodysplastic syndrome Rheumatoid arthritis SOB (shortness of breath) Steroid-induced diabetes mellitus Surgical History: Surgical History (Last Reviewed 01/05/23 @ 15:35 by BENNETT Newton) H/O colonoscopy with polypectomy History of cardiac radiofrequency ablation History of surgical amputation of finger of left hand Family History: Family History (Last Reviewed 01/05/23 @ 15:36 by BENNETT Newton) Father Family history of coronary artery disease Family history of cardiovascular disease Mother Hypertension A-fib Sibling Diabetes 1.5, managed as type 2 Kidney failure Sibling Hypertension Other Family history of arthritis - Social History Social History: Social History (Last Reviewed 01/05/23 @ 15:36 by BENNETT Newton) Gender Identity: Gender identity (if verbalized by the patient): Male Alcohol Use: Alcohol intake: never Drinks per week: 7 Alcohol use details: He typically drinks a glass a wine each night. Substance Use: Substance use: never Substance use type: does not use Others: Spiritual care concerns: No Agree to blood products: Yes Living Arrangements: Living arrangements: with family Oppucation/Education: Occupation/Education: retired Smoking Status: Smoking status: Former smoker Second hand tobacco smoke exposure: Yes Smoking Pack-years: Smoking packs per day: 3 Smoking cigarettes per day: 60.0 Years smoked: 40 Smoking pack-years: 120.00 Social Determinants of Health: Has the Lack of Transportation Kept You From Medical Appointments or From Getting Medications?: No Within the Past 12 Months, Were You Worried Whether Your Food Would Run Out Before You Got Money to Buy More?: Never True What is Your Housing Situation Today?: I Have Housing Are You Worried That in the Next 2 Months, You May Not Have Your Own Housing to Live In?: No Do You Have Trouble Paying Your Heating Or Electricity Bill?: No Do You Have Trouble Paying For Medicines?: No Are You Currently Unemployed and Looking for Work?: No Highest Level of Education Completed: Grade School Do You Have Trouble With Childcare or the Care of a Family Member?: No Exam - Vital Signs Vital Signs - 24 hr
[2023-01-05] MEDS: DUTASTERIDE 0.5 MG CAPSULE PO (21:51)
[2023-01-05] MEDS: MIRTAZAPINE 15 MG TABLET PO (21:52)
[2023-01-05] MEDS: PANTOPRAZOLE 40 MG TABLET PO (21:52)
[2023-01-05] MEDS: AMITRIPTYLINE HCL 25 MG TABLET PO (21:52)
[2023-01-05 22:00] LABS: Glucose Point of Care 354 mg/dl (65-105)
--- NOTE | 2023-01-05 22:29 | PC.NURSE ---
pt refusing scheduled labs and being verbally inappropriate with product support technician
[2023-01-06] VITALS (22 sets, daily range): BP systolic 100–105; BP diastolic 51–67; PULSE 75–100; RESP 14–20; TEMP 36.2–36.4; O2SAT 93–97
[2023-01-06] MEDS: DOXYCYCLINE HYCLATE 100 MG TABLET PO ×3 (01:07→21:20)
--- NOTE | 2023-01-06 02:51 | PCRCNOTE ---
Window of time for administration has passed. See next scheduled administration.
[2023-01-06] MEDS: ALBUTEROL SULFATE NEB 2.5 MG/3 ML INH INHALATION ×5 (03:30→20:39)
[2023-01-06 06:39] LABS: Hematocrit 30.6 % (42.0-52.0); Hemoglobin 9.5 g/dL (14.0-18.0); Immature Platelet Fraction Pct 14.3 % (0.9-11.2); Mean Corpuscular Hemoglobin 30.9 pg (26-34); Mean Corpuscular Volume 99.7 fl (80-100); Mean Platelet Volume 11.6 fl (7.4-10.4); Platelet Count Result 83 k/mm3 (150-375); Red Blood Count 3.07 M/mm3 (4.6-6.20); White Blood Count 13.8 K/mm3 (4.5-10.0)
[2023-01-06 06:50] LABS: Hemoglobin A1C 9.3 % (<5.7)
[2023-01-06 06:52] LABS: Alanine Aminotransferase 21 U/L (6-50); Albumin Level 3.3 g/dL (3.5-5.1); Alkaline Phosphatase 62 U/L (38-126); Anion Gap 4 mmol/L (8-16); Aspartate Amino Transferase 17 U/L (17-59); Bilirubin,Total 0.6 mg/dL (0.2-1.3); Blood Urea Nitrogen 32 mg/dL (9-20); Carbon Dioxide 29 mmol/L (22-30); Chloride 104 mmol/L (98-107); Estimated CRCL calculation 110 ml/min; Estimated Glomerular Filt Rate > 60; Glucose 288 mg/dL (65-110); Magnesium 2.2 mg/dL (1.6-2.3); Potassium 4.2 mmol/L (3.4-5.0); Sodium 137 mmol/L (137-145)
[2023-01-06 06:59] LABS: Iron 72 ug/dL (49-181)
[2023-01-06 07:09] LABS: Percent Iron Saturation 30 % (20-50)
[2023-01-06 07:17] LABS: Procalcitonin 0.3 ng/mL
[2023-01-06 07:34] LABS: Band Neutrophils Percent 10 % (0-6); Basophils Absolute Manual 0.13 K/mm3 (0.0-0.1); Basophils Percent Manual 1 % (0-1); Eosinophils Absolute Manual 0.27 K/mm3 (0.02-0.5); Eosinophils Percent Manual 2 % (0-4); Lymphocytes Absolute Manual 0.96 K/mm3 (1.1-4.5); Monocytes Absolute Manual 1.24 K/mm3 (0.1-0.90); Monocytes Percent Manual 9 % (3-9); Myelocytes Percent 2 %; Neutrophils Absolute Manual 10.21 K/mm3 (1.3-6.7); Neutrophils Percent Manual 64 % (46-73); Nucleated Red Blood Cells 1 %; Platelet Estimate Decreased (Adequate); Promyelocytes Percent 4 %; Total Cells Counted 100
[2023-01-06 07:35] LABS: Schistocytes None Seen (NORMAL)
[2023-01-06 07:36] LABS: Anisocytosis 1+ (NORMAL); Stomatocytes 1+ (NORMAL)
[2023-01-06 07:37] LABS: Large Platelets Present; Polychromasia 1+ (NORMAL)
[2023-01-06 07:53] LABS: Folic Acid > 20.0 ng/mL (2.76->20)
[2023-01-06 07:57] LABS: Glucose Point of Care 270 mg/dl (65-105)
[2023-01-06] MEDS: INSULIN ASPART (*BKC) 100 UNITS/ML SUB-Q ×2 (09:17→12:49)
[2023-01-06] MEDS: valACYclovir HCL 500 MG TABLET PO (09:17)
[2023-01-06] MEDS: SOTALOL HCL 80 MG TABLET PO ×2 (09:18→20:43)
[2023-01-06] MEDS: APIXABAN 5 MG TABLET 10 MG PO ×2 (09:18→20:44)
[2023-01-06] MEDS: CALCIUM CARBONATE (OSCAL) 500 MG TABLET PO ×2 (09:18→16:39)
[2023-01-06] MEDS: DOCUSATE SODIUM 100 MG CAPSULE PO ×2 (09:18→20:44)
[2023-01-06] MEDS: allopurinoL 100 MG TABLET PO (09:18)
[2023-01-06] MEDS: DEXAMETHASONE 2 MG TABLET PO ×2 (09:19→16:39)
[2023-01-06] MEDS: polyethylene glycoL 3350 17 GM POWD.PACK PO (09:19)
[2023-01-06] MEDS: INSULIN GLARGINE (*BKC) 100 UNITS/ML 10 UNITS SUB-Q (09:32)
--- NOTE | 2023-01-06 09:48 | PM.IMPN ---
Progress Note: A&P Assessment and Plan (1) Pneumonia: Qualifiers: Laterality: unspecified laterality Lung location: unspecified part of lung Pneumonia type: due to unspecified organism Qualified Code(s): J18.9 - Pneumonia, unspecified organism Code(s): J18.9 - Pneumonia, unspecified organism Status: Acute Assessment and Plan: CTA chest with moderate pulmonary edema and dependent pulmonary opacities may represent atelectasis, and/or edema. Productive cough at home with green sputum SOB and cough is slowly improving Increased oxygen requirement of 4 L NC Spo2 90%. Baseline o2 is 2-3 L NC. Blood cultures NGTD. Sputum culture ordered. Started on Rocephin and doxycycline 01/06: Sputum culture shows heavy growth of Serratia marcescens and moderate growth of Pseudomonas aeruginosa, IV antibiotics changed to cefepime (2) Pulmonary edema: Code(s): J81.1 - Chronic pulmonary edema Status: Acute Assessment and Plan: No history of heart failure CT chest with moderate pulmonary edema and BLE edema S/P IVP lasix Requiring oxygen Echo ordered Venous Doppler-+ bilateral DVT. ECHO: Summary ? 1. Complete two-dimensional, color flow and Doppler transthoracic echocardiogram is performed. ? 2. Left ventricular hypertrophy with well-preserved systolic function and grade 1 diastolic noncompliance. ? 3. Sclerotic but not stenotic aortic valve. ? 4. Small amount of mitral and tricuspid insufficiency. ? 5. TR velocities indicate pulmonary artery pressures are likely to be 54 mmHg. ? 6. Compared with echocardiogram from 2019 there is no substantial difference. 01/06: Ordered additional IV Lasix (3) Myelodysplastic syndrome: Code(s): D46.9 - Myelodysplastic syndrome, unspecified Status: Acute Assessment and Plan: Currently on treatment with Ruxolitinib 10 mg PO BID and Hydroxyurea 500 mg Po Daily and Enasidenib 50 mg PO MWF and Dexamethasone 2 mg PO BID Pancytopenia related to this. 01/06: Hydroxyurea held at recommendation of Dr. Veras however other to medications to treat this syndrome have been reordered and brought in from home. (4) Chronic respiratory failure with hypoxia: Code(s): J96.11 - Chronic respiratory failure with hypoxia Status: Acute Assessment and Plan: see 1 & 2 (5) DVT (deep venous thrombosis): Code(s): I82.409 - Acute embolism and thrombosis of unspecified deep veins of unspecified lower extremity Status: Acute Assessment and Plan: + BLE DVT PE was ruled out with CTA Thrombocytopenia due to myelodysplastic syndrome makes it difficult to anticoagulate Started on heparin gtt Consulted surgery to discuss IVC filter placement. Platelets 89,000 today. Monitor for bleeding. PTT Q 6 per protocol and daily CBC Surgery is recommending trailing DOAC first as his platelets are 89,000 and he is not bleeding. Patient and are okay with this plan. Should he develop active bleeding or platelets drop to 50,000 then reconsider surgery. Stopping heparin gtt and starting Eliquis today. Patient and family are also interested in hospice and assistance with arrangements. They would prefer hospice at home. 01/06: Patient has done some independent resurgence still wants IVC filter. I pass this message along to surgery BED LASTER who will discuss with surgery attending tomorrow. 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 Blood glucose has remained in the high 200's-low 300's. Now 467. Stopping home regimen and adding Lantus 10 units daily with high dose slide. Plan Eliquis for DVT Hospice/Palliative care reso
--- NOTE | 2023-01-06 11:50 | PHAR ---
Home medication identified. IDHIFA (enasidenib 50mg tablets) and returned to [address] [place] [address]
[2023-01-06 11:51] LABS: Glucose Point of Care 293 mg/dl (65-105)
[2023-01-06] MEDS: CEFEPIME 2 GM/NS 50 ML 2 GM/50 ML BAG IVPB ×2 (12:50→20:44)
--- NOTE | 2023-01-06 13:27 | PCPTNOTE ---
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 Will follow.
--- NOTE | 2023-01-06 15:43 | PCOTNOTE ---
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 Will follow.
[2023-01-06] MEDS: FUROSEMIDE INJ 40 MG/4 ML VIAL IV PUSH (16:39)
[2023-01-06 16:46] LABS: Glucose Point of Care 365 mg/dl (65-105)
[2023-01-06] MEDS: traMADol HCL (*CRX) 50 MG TABLET PO (17:20)
[2023-01-06] MEDS: INSULIN ASPART (*BKC) 100 UNITS/ML 10 UNITS SUB-Q (17:22)
[2023-01-06] MEDS: MIRTAZAPINE 15 MG TABLET PO (20:43)
[2023-01-06] MEDS: DUTASTERIDE 0.5 MG CAPSULE PO (20:43)
[2023-01-06] MEDS: guaiFENesin 12 HR 600 MG TABCR PO (20:43)
[2023-01-06] MEDS: PANTOPRAZOLE 40 MG TABLET PO (20:43)
[2023-01-06] MEDS: AMITRIPTYLINE HCL 25 MG TABLET PO (20:44)
[2023-01-06 21:16] LABS: Glucose Point of Care 470 mg/dl (65-105)
[2023-01-06] MEDS: INSULIN ASPART (*BKC) 100 UNITS/ML 11 UNITS SUB-Q (21:20)
[2023-01-07] VITALS (18 sets, daily range): BP systolic 104–115; BP diastolic 46–64; PULSE 69–90; RESP 13–17; TEMP 36.2–36.9; O2SAT 92–97
[2023-01-07] MEDS: ALBUTEROL SULFATE NEB 2.5 MG/3 ML INH INHALATION ×4 (00:42→20:27)
[2023-01-07] MEDS: CEFEPIME 2 GM/NS 50 ML 2 GM/50 ML BAG IVPB ×3 (06:48→21:11)
[2023-01-07 06:59] LABS: Hematocrit 31.5 % (42.0-52.0); Hemoglobin 9.9 g/dL (14.0-18.0); Immature Platelet Fraction Pct 16.5 % (0.9-11.2); Mean Corpuscular HGB Conc 31.4 g/dl (32-36); Mean Corpuscular Hemoglobin 31.5 pg (26-34); Mean Corpuscular Volume 100.3 fl (80-100); Mean Platelet Volume 11.4 fl (7.4-10.4); Platelet Count Result 92 k/mm3 (150-375); Red Blood Count 3.14 M/mm3 (4.6-6.20); Red Cell Distribution Width 20.8 % (11.5-14.5); White Blood Count 17.3 K/mm3 (4.5-10.0)
[2023-01-07 07:09] LABS: Alanine Aminotransferase 19 U/L (6-50); Albumin Level 3.4 g/dL (3.5-5.1); Alkaline Phosphatase 64 U/L (38-126); Anion Gap 4 mmol/L (8-16); Aspartate Amino Transferase 15 U/L (17-59); Bilirubin,Total 0.7 mg/dL (0.2-1.3); Blood Urea Nitrogen 35 mg/dL (9-20); Calcium 8.8 mg/dL (8.4-10.2); Carbon Dioxide 33 mmol/L (22-30); Chloride 99 mmol/L (98-107); Estimated CRCL calculation 110 ml/min; Estimated Glomerular Filt Rate > 60; Glucose 302 mg/dL (65-110); Potassium 4.6 mmol/L (3.4-5.0); Sodium 136 mmol/L (137-145)
[2023-01-07 07:33] LABS: Glucose Point of Care 300 mg/dl (65-105)
[2023-01-07 07:59] LABS: Anisocytosis 2+ (NORMAL); Band Neutrophils Percent 8 % (0-6); Eosinophils Absolute Manual 0.17 K/mm3 (0.02-0.5); Eosinophils Percent Manual 1 % (0-4); Lymphocytes Absolute Manual 1.73 K/mm3 (1.1-4.5); Metamyelocytes Percent 4 %; Monocytes Absolute Manual 1.03 K/mm3 (0.1-0.90); Monocytes Percent Manual 6 % (3-9); Myelocytes Percent 2 %; Neutrophils Absolute Manual 13.14 K/mm3 (1.3-6.7); Neutrophils Percent Manual 68 % (46-73); Platelet Estimate Decreased (Adequate); Promyelocytes Percent 1 %; Total Cells Counted 100
[2023-01-07 08:00] LABS: Atypical Lymphocytes Present; Schistocytes None Seen (NORMAL)
[2023-01-07] MEDS: INSULIN ASPART (*BKC) 100 UNITS/ML SUB-Q ×3 (08:12→21:10)
[2023-01-07] MEDS: DOCUSATE SODIUM 100 MG CAPSULE PO ×2 (08:14→21:09)
[2023-01-07] MEDS: DOXYCYCLINE HYCLATE 100 MG TABLET PO ×2 (08:15→21:09)
[2023-01-07] MEDS: APIXABAN 5 MG TABLET 10 MG PO ×2 (08:15→21:09)
[2023-01-07] MEDS: SOTALOL HCL 80 MG TABLET PO ×2 (08:15→21:10)
[2023-01-07] MEDS: DEXAMETHASONE 2 MG TABLET PO ×2 (08:15→17:14)
[2023-01-07] MEDS: allopurinoL 100 MG TABLET PO (08:15)
[2023-01-07] MEDS: guaiFENesin 12 HR 600 MG TABCR PO (08:15)
[2023-01-07] MEDS: FUROSEMIDE INJ 40 MG/4 ML VIAL IV PUSH (08:16)
[2023-01-07] MEDS: CALCIUM CARBONATE (OSCAL) 500 MG TABLET PO ×2 (08:16→17:14)
[2023-01-07] MEDS: polyethylene glycoL 3350 17 GM POWD.PACK PO (08:16)
[2023-01-07] MEDS: valACYclovir HCL 500 MG TABLET PO (08:17)
[2023-01-07] MEDS: INSULIN GLARGINE (*BKC) 100 UNITS/ML 10 UNITS SUB-Q (08:22)
--- NOTE | 2023-01-07 08:25 | PCRCNOTE ---
Pt refused tx at this time
--- NOTE | 2023-01-07 11:38 | PCRCNOTE ---
Pt refused respiratory treatment.
--- NOTE | 2023-01-07 11:47 | PM.IMPN ---
Progress Note: A&P Assessment and Plan (1) Pneumonia: Qualifiers: Laterality: unspecified laterality Lung location: unspecified part of lung Pneumonia type: due to unspecified organism Qualified Code(s): J18.9 - Pneumonia, unspecified organism Code(s): J18.9 - Pneumonia, unspecified organism Status: Acute Assessment and Plan: CTA chest with moderate pulmonary edema and dependent pulmonary opacities may represent atelectasis, and/or edema. Productive cough at home with green sputum SOB and cough is slowly improving Increased oxygen requirement of 4 L NC Spo2 90%. Baseline o2 is 2-3 L NC. Blood cultures NGTD. Sputum culture ordered. Started on Rocephin and doxycycline 01/06: Sputum culture shows heavy growth of Serratia marcescens and moderate growth of Pseudomonas aeruginosa, IV antibiotics changed to cefepime 01/07: Improved respiratory status decreased oxygen demand and improved aeration after 1 day of targeted antibiotic treatment (2) Pulmonary edema: Code(s): J81.1 - Chronic pulmonary edema Status: Acute Assessment and Plan: No history of heart failure CT chest with moderate pulmonary edema and BLE edema S/P IVP lasix Requiring oxygen Echo ordered Venous Doppler-+ bilateral DVT. ECHO: Summary ? 1. Complete two-dimensional, color flow and Doppler transthoracic echocardiogram is performed. ? 2. Left ventricular hypertrophy with well-preserved systolic function and grade 1 diastolic noncompliance. ? 3. Sclerotic but not stenotic aortic valve. ? 4. Small amount of mitral and tricuspid insufficiency. ? 5. TR velocities indicate pulmonary artery pressures are likely to be 54 mmHg. ? 6. Compared with echocardiogram from 2019 there is no substantial difference. 01/06: Ordered additional IV Lasix (3) Myelodysplastic syndrome: Code(s): D46.9 - Myelodysplastic syndrome, unspecified Status: Acute Assessment and Plan: Currently on treatment with Ruxolitinib 10 mg PO BID and Hydroxyurea 500 mg Po Daily and Enasidenib 50 mg PO MWF and Dexamethasone 2 mg PO BID Pancytopenia related to this. 01/06: Hydroxyurea held at recommendation of Dr. Veras however other to medications to treat this syndrome have been reordered and brought in from home. (4) Chronic respiratory failure with hypoxia: Code(s): J96.11 - Chronic respiratory failure with hypoxia Status: Acute Assessment and Plan: see 1 & 2 (5) DVT (deep venous thrombosis): Code(s): I82.409 - Acute embolism and thrombosis of unspecified deep veins of unspecified lower extremity Status: Acute Assessment and Plan: + BLE DVT PE was ruled out with CTA Thrombocytopenia due to myelodysplastic syndrome makes it difficult to anticoagulate Started on heparin gtt Consulted surgery to discuss IVC filter placement. Platelets 89,000 today. Monitor for bleeding. PTT Q 6 per protocol and daily CBC Surgery is recommending trailing DOAC first as his platelets are 89,000 and he is not bleeding. Patient and are okay with this plan. Should he develop active bleeding or platelets drop to 50,000 then reconsider surgery. Stopping heparin gtt and starting Eliquis today. Patient and family are also interested in hospice and assistance with arrangements. They would prefer hospice at home. 01/06: Patient has done some independent research still wants IVC filter. I pass this message along to surgery STAFF [employer]APONS OFFICER who will discuss with surgery attending tomorrow. 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 Blood glucose has remained in the hi
[2023-01-07 12:01] LABS: Glucose Point of Care 292 mg/dl (65-105)
--- NOTE | 2023-01-07 13:41 | PCPTNOTE ---
Attempted PT evaluation, pt's spouse declined pt participating in therapy at this time due to pt sleeping/pt inability to move. Pt's spouse also emphasized the pt will likely be going hospice/palliative care. Hospitalist made aware.
--- NOTE | 2023-01-07 14:31 | PCOTNOTE ---
Attempted to see pt. for occupational therapy evaluation. Pt. and family declined at this time. Family plans to meet with Palliative Care Services today, prior to making further plans for care. Hospitalist informed. Nursing aware. Following
[2023-01-07] MEDS: traMADol HCL (*CRX) 50 MG TABLET PO (17:13)
[2023-01-07 17:15] LABS: Glucose Point of Care 417 mg/dl (65-105)
[2023-01-07] MEDS: INSULIN ASPART (*BKC) 100 UNITS/ML 12 UNITS SUB-Q (17:48)
[2023-01-07 20:36] LABS: Glucose Point of Care 241 mg/dl (65-105)
[2023-01-07] MEDS: PANTOPRAZOLE 40 MG TABLET PO (21:10)
[2023-01-07] MEDS: MIRTAZAPINE 15 MG TABLET PO (21:10)
[2023-01-07] MEDS: INSULIN GLARGINE (*BKC) 100 UNITS/ML 30 UNITS SUB-Q (21:10)
[2023-01-07] MEDS: AMITRIPTYLINE HCL 25 MG TABLET PO (21:10)
[2023-01-07] MEDS: DUTASTERIDE 0.5 MG CAPSULE PO (21:10)
[2023-01-08] VITALS (10 sets, daily range): BP systolic 93–102; BP diastolic 43–54; PULSE 60–94; RESP 13–18; TEMP 36.1–36.2; O2SAT 94–97
[2023-01-08] MEDS: CEFEPIME 2 GM/NS 50 ML 2 GM/50 ML BAG IVPB ×2 (05:53→15:24)
--- NOTE | 2023-01-08 06:07 | PCRCNOTE ---
This pt refused his 0000 and 0400 updraft treatments due to wanting sleep. Treatments to resume at 0800.
--- NOTE | 2023-01-08 06:27 | PC.NURSE ---
Pt refusing lab work this morning, states he does not need it since he is going home on hospice. Pt educated on importance of monitoring bloodwork.
[2023-01-08 07:44] LABS: Glucose Point of Care 117 mg/dl (65-105)
[2023-01-08] MEDS: allopurinoL 100 MG TABLET PO (09:31)
[2023-01-08] MEDS: DOCUSATE SODIUM 100 MG CAPSULE PO (09:32)
[2023-01-08] MEDS: APIXABAN 5 MG TABLET 10 MG PO (09:32)
[2023-01-08] MEDS: DEXAMETHASONE 2 MG TABLET PO (09:32)
[2023-01-08] MEDS: valACYclovir HCL 500 MG TABLET PO (09:32)
[2023-01-08] MEDS: DOXYCYCLINE HYCLATE 100 MG TABLET PO (09:32)
[2023-01-08] MEDS: CALCIUM CARBONATE (OSCAL) 500 MG TABLET PO (09:32)
--- NOTE | 2023-01-08 10:50 | PM.IMPN ---
Progress Note: A&P Assessment and Plan (1) Pneumonia: Qualifiers: Laterality: unspecified laterality Lung location: unspecified part of lung Pneumonia type: due to unspecified organism Qualified Code(s): J18.9 - Pneumonia, unspecified organism Code(s): J18.9 - Pneumonia, unspecified organism Status: Acute Assessment and Plan: CTA chest with moderate pulmonary edema and dependent pulmonary opacities may represent atelectasis, and/or edema. Productive cough at home with green sputum SOB and cough is slowly improving Increased oxygen requirement of 4 L NC Spo2 90%. Baseline o2 is 2-3 L NC. Blood cultures NGTD. Sputum culture ordered. Started on Rocephin and doxycycline 01/06: Sputum culture shows heavy growth of Serratia marcescens and moderate growth of Pseudomonas aeruginosa, IV antibiotics changed to cefepime 01/07: Improved respiratory status decreased oxygen demand and improved aeration after 1 day of targeted antibiotic treatment 01/08: Confusion with drowsiness today. is going to sign patient up for hospice with goal to go home on comfort care. (2) Pulmonary edema: Code(s): J81.1 - Chronic pulmonary edema Status: Acute Assessment and Plan: No history of heart failure CT chest with moderate pulmonary edema and BLE edema S/P IVP lasix Requiring oxygen Echo ordered Venous Doppler-+ bilateral DVT. ECHO: Summary ? 1. Complete two-dimensional, color flow and Doppler transthoracic echocardiogram is performed. ? 2. Left ventricular hypertrophy with well-preserved systolic function and grade 1 diastolic noncompliance. ? 3. Sclerotic but not stenotic aortic valve. ? 4. Small amount of mitral and tricuspid insufficiency. ? 5. TR velocities indicate pulmonary artery pressures are likely to be 54 mmHg. ? 6. Compared with echocardiogram from 2019 there is no substantial difference. 01/06: Ordered additional IV Lasix (3) Myelodysplastic syndrome: Code(s): D46.9 - Myelodysplastic syndrome, unspecified Status: Acute Assessment and Plan: Currently on treatment with Ruxolitinib 10 mg PO BID and Hydroxyurea 500 mg Po Daily and Enasidenib 50 mg PO MWF and Dexamethasone 2 mg PO BID Pancytopenia related to this. 01/06: Hydroxyurea held at recommendation of Dr. Veras however other to medications to treat this syndrome have been reordered and brought in from home. 01/08: Will go hospice (4) Chronic respiratory failure with hypoxia: Code(s): J96.11 - Chronic respiratory failure with hypoxia Status: Acute Assessment and Plan: see 1 & 2 (5) DVT (deep venous thrombosis): Code(s): I82.409 - Acute embolism and thrombosis of unspecified deep veins of unspecified lower extremity Status: Acute Assessment and Plan: + BLE DVT PE was ruled out with CTA Thrombocytopenia due to myelodysplastic syndrome makes it difficult to anticoagulate Started on heparin gtt Consulted surgery to discuss IVC filter placement. Platelets 89,000 today. Monitor for bleeding. PTT Q 6 per protocol and daily CBC Surgery is recommending trailing DOAC first as his platelets are 89,000 and he is not bleeding. Patient and are okay with this plan. Should he develop active bleeding or platelets drop to 50,000 then reconsider surgery. Stopping heparin gtt and starting Eliquis today. Patient and family are also interested in hospice and assistance with arrangements. They would prefer hospice at home. 01/06: Patient has done some independent research still wants IVC filter. I pass this message along to surgery FURNITURE UPHOLSTERY MECHANIC who will discuss with surgery attending tomorrow. 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
[2023-01-08 11:30] LABS: Glucose Point of Care 209 mg/dl (65-105)
[2023-01-08] MEDS: INSULIN ASPART (*BKC) 100 UNITS/ML SUB-Q (12:27)
[2023-01-08] MEDS: ALBUTEROL SULFATE NEB 2.5 MG/3 ML INH INHALATION (12:45)
--- NOTE | 2023-01-08 12:50 | PM.DS ---
DS: Admitting Diagnosis Discharge Date 01/08/2023 Admitting Diagnosis Pneumonia, pulmonary edema, narrowing of airway, mild dysplastic syndrome, chronic respiratory failure with hypoxia DS: Discharge Diagnosis Discharge Diagnosis (1) Pneumonia: Code(s): J18.9 - Pneumonia, unspecified organism Status: Acute (2) Pulmonary edema: Code(s): J81.1 - Chronic pulmonary edema Status: Acute (3) Myelodysplastic syndrome: Code(s): D46.9 - Myelodysplastic syndrome, unspecified Status: Acute (4) Chronic respiratory failure with hypoxia: Code(s): J96.11 - Chronic respiratory failure with hypoxia Status: Acute (5) DVT (deep venous thrombosis): Code(s): I82.409 - Acute embolism and thrombosis of unspecified deep veins of unspecified lower extremity Status: Acute (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 - Drug or chemical induced diabetes mellitus without complications; T38.0X5A - Adverse effect of glucocorticoids and synthetic analogues, initial encounter Status: Acute (7) Narrowing of airway: Code(s): J98.8 - Other specified respiratory disorders Status: Acute (8) Hypoxia: Code(s): R09.02 - Hypoxemia Status: Acute (9) Pneumonia: Qualifiers: Laterality: unspecified laterality Lung location: unspecified part of lung Pneumonia type: due to unspecified organism Qualified Code(s): J18.9 - Pneumonia, unspecified organism Code(s): J18.9 - Pneumonia, unspecified organism Status: Acute (10) MDS (myelodysplastic syndrome): Code(s): D46.9 - Myelodysplastic syndrome, unspecified Status: Acute DS: Summary Hospital Course Reason for hospitalization: Patient was admitted due to pneumonia shortness of breath pulmonary edema. Hospital Course: Sputum culture showed heavy growth of Serratia marcescens and moderate growth of Pseudomonas aeruginosa. He was treated with IV antibiotics. Patient was found to have a right lower extremity DVT was initiated on Eliquis after being evaluated for possible IVC filter. Patient also found to have significant abnormal tracheal and upper bronchus narrowing on CTA. Unknown how long this has been present or how advanced it is because there was no comparison film. Patient's primary oncologist has repeatedly attempted to get him to consent to hospice care to keep him comfortable at end of life and keep him out of the hospital. Ultimately his myelodysplastic syndrome is fatal. Patient has deteriorated to the point that he cannot participate in therapy cannot stand or ambulate. Patient is requiring chronic oxygen at home and while in the hospital. Family meeting held with hospice and patient was initially very resistant but eventually acknowledged his prognosis is terminal and agreed to hospice care. On day of discharge hospice is able to dose to his home and complete admission and arrange for follow up care. Family is also coordinating with the company to provide additional caregiver support in the home up to 16/11 care. This morning when I went to see patient he was altered level of consciousness confused awakens to voice no longer remains decisional capacity. Blood pressure noted to be lower today as well. Status at Discharge Cognitive/behavioral status at discharge: Confused awakens to voice occasional outbursts of anger Functional status at discharge: bed bound Overall status at discharge: patient is not back to baseline Time Spent with Patient Time attestation: Total time spent providing and/or coordinating discharge services: 60 Time spent: Greater than 30 minutes Exam Narrative: General: chronically ill appearing, well nourished, appears stated age. HEENT: normocephalic, atraumatic. Mucous membranes moist. EOMI, PERRLA, bilateral sclera anicteric, no conjunctival injection. Neck supple without JVD, lymphadenopathy, or bruit. [place]IB[place] AND [place]. Respiratory: Coarse lung sounds
--- NOTE | 2023-01-08 13:25 | PCOTNOTE ---
Plans for to be discharged on hospice per family plans. Will contact hospitalist to confirm. Following.
[2023-01-08] MEDS: traMADol HCL (*CRX) 50 MG TABLET PO (15:30)
[2023-01-08 22:13] LABS: Heparin Induced Platelet Antib Negative (Negative)
[2023-01-20 15:09] LABS: Platelet Antibody, Direct IgG Negative
== END 2023-01-08 16:10 | disposition hospice, home (50) | DRG 178 ==
LOC: ANHED 15:46 → ANH3MEDSUR 20:36
PROVIDERS: Internal Medicine; Internal Medicine Hematology & Oncology; Nurse Practitioner Acute Care; Physician Assistant; Admitting Provider Internal Medicine; Emergency Provider Preventive Medicine Aerospace Medicine; PCP Family Medicine; Visit Provider Nurse Practitioner
DX: J15.1 Pneumonia due to Pseudomonas (principal); I82.413 Acute embolism and thrombosis of femoral vein, bilateral; J81.1 Chronic pulmonary edema; J96.11 Chronic respiratory failure with hypoxia; J15.6 Pneumonia due to other Gram-negative bacteria; D46.9 Myelodysplastic syndrome, unspecified; D69.6 Thrombocytopenia, unspecified; E09.9 Drug or chemical induced diabetes mellitus without complications; T38.0X5A Adverse effect of glucocorticoids and synthetic analogues, initial encounter; I25.10 Atherosclerotic heart disease of native coronary artery without angina pectoris; I10 Essential (primary) hypertension; I48.0 Paroxysmal atrial fibrillation; M06.9 Rheumatoid arthritis, unspecified; Z89.022 Acquired absence of left finger(s); Z87.891 Personal history of nicotine dependence; Z79.4 Long term (current) use of insulin; Z86.73 Personal history of transient ischemic attack (TIA), and cerebral infarction without residual deficits; Z99.81 Dependence on supplemental oxygen
CPT/HCPCS: 36415; 71045; 71275; 80048; 80053; 81001; 82607; 82728; 82746; 82948; 83036; 83540; 83550; 83605; 83735; 84145; 84443; 84484; 85025; 85055; 85610; 85730; 86022; 86023; 87040; 87070; 87077; 87186; 87205; 93005; 93306; 93970; 94640; 96361; 96365; 96367; 96375; 99285; A9270; G0378; J0456; J0692; J0696; J1644; J1815; J1940; J7030; J8540; Q9967